=== PATIENT | female | born 1980 | race Caucasian/White ===

== ENCOUNTER 2020-08-19 11:11 | Inpatient (IN) | payer MEDICAID, SELFPAY ==
[2020-08-19 11:12] VITALS: BP 138/76; PULSE 86; RESP 16; O2SAT 97; BMI 45.3
--- NOTE | 2020-08-19 11:38 | ED_ITS ---
HPI - Psych General: Chief Complaint: Psychiatric Symptoms Stated Complaint: PSYCH EVAL Time Seen by Provider: 08/19/20 11:12 Source: patient Limitations: no limitations History of Present Illness: HPI Narrative: 40-year-old female presents with depression and why she is claiming suicidal thoughts and ideation. Patient reports she has a history of depression feels like she needs to be placed inpatient have her meds adjusted. Patient reports that she currently takes depression medication. She states she feels like she did not hurt her self by taking a bunch of pills. She denies any thoughts of hurting but else. She denies any recent illnesses or COVID contacts. Patient no other complaints MD complaint: suicidal ideation Associated symptoms: Reports depression and suicidal ideation Review of Systems Const: Denies: fever(s) or chills Eyes: Denies: change in vision ENMT: Denies: throat pain or hoarseness Card: Denies: chest pain or palpitations Resp: Denies: dyspnea or productive cough GI: Denies: abdominal pain, nausea or vomiting : Denies: flank pain or difficulty voiding Musc: Denies: neck pain or back pain Skin/Breast: Denies: rash or pruritus Neuro: Denies: headache(s) or numbness in extremities Psych: Reports: depression and suicidal ideation Endo: Denies: polyuria or polydipsia All/Imm: Denies: urticaria Physical Exam Const: COMMON NORMALS: no acute distress and patient oriented x3 GENERAL APPEARANCE: cooperative and comfortable NUTRITIONAL APPEARANCE: obese HENMT: COMMON NORMALS: normocephalic and atraumatic HEAD & SCALP: normocephalic and atraumatic FACE & SINUS: normal facial exam Eye: COMMON NORMALS: Equal, round and reactive pupils present and EOMs intact bilaterally PUPIL: Yes Equal, round and reactive pupils present Lymph: LYMPHATIC: no lymphadenopathy noted Chest: COMMONS NORMALS: normal inspection of the chest CHEST: Yes abnormal inspection of the chest Resp: COMMON NORMALS: normal respiratory effort, No retractions and No use of accessory muscles EFFORT & INSPECTION: Yes able to speak in complete sentences Cardio: COMMON NORMALS: regular rate and regular rhythm RATE: regular rate RHYTHM: regular rhythm GI: COMMON NORMALS: Normal to inspection, nondistended, normoactive bowel sounds present, Soft to palpation and non-tender PALPATION: Yes Soft to palpation : COMMON NORMALS: Yes no CVA tenderness and Yes normal external appearance BLADDER/KIDNEY EXAM: Yes no CVA tenderness Back/Pelvis: COMMON NORMALS: no CVA tenderness Extremity: COMMON NORMALS: normal to inspection and full ROM Neuro: COMMON NORMALS: patient oriented x3, CN's II-XII intact bilaterally and no focal motor deficits Psych: COMMON NORMALS: mental status grossly normal and speech normal SPEECH: Yes normal speech THOUGHT CONTENT: Yes Suicidality present INSIGHT: Fair insight present (Psych) Skin: COMMON NORMALS: no rashes or lesions noted GENERAL SKIN EXAM: no rashes or lesions noted MDM - Psych Lab Data: Labs: Lab Results 08/19/20 08/19/20 08/19/20 Range/Units 11:20 11:20 11:20 WBC (4.0-10.0) 10^3/ uL RBC (4.1-5.3) 10^6/u L Hgb (11.5-15.3) g/dL Hct (37.0-47.0) % MCV (81-99) fL MCH (28.0-34.0) pg MCHC (30.0-36.0) g/dL RDW (12.1-15.1) % Plt Count (130-400) 10^3/c mm MPV (7.4-10.4) fL Neut % (Auto) % Lymph % (Auto) % [place] % (Auto) % Eos % (Auto) % Baso % (Auto) % Neut # (Auto) (1.8-7.7) 10^3/u L Lymph # (Auto) (0.8-4.8) 10^3/u L [place] # (Auto) (0.2-0.9) 10^3/u L Eos # (Auto) (0.0-0.8) 10^3/u L Baso # (Auto) (0.0-0.1) 10^3/u L Nucleated RBC % (a uto) % Nucleated RBCs # /100WBC Sodium (136-145) mmol/L Potassium (3.5-5.1) mmol/L Chloride (98-107) mmol/L Carbon Dioxide (22-29) mmol/L Anion Gap (5-19) BUN (6-20) mg/dL Creatinine (0.5-0.9) mg/dL GFR Calculation (90-130) mL/min Glucose (65-115) mg/dL Calculated Osmolal ity (285-295) mOsm/k g Calcium (8.5-10.5) mg/dL Total Bilirubin (0.15-1.2) mg/dL AST (0-32) U/L ALT (0-33) U/L Alkaline Phosphata se (35-105) IU/L Total Protein (6.6-8.7) g/dL Albumin (3.5-5.2) g/dL Globulin (1.3-4.6) g/dL HCG, Qual Negative (Negative) Urine Color Yellow (Yellow) Urine Appearance Hazy A (CLEAR) Urine pH 6.5 (5-7) Ur Specific Gravit y 1.015 (1.005-1.030) Urine Protein Neg (Negative) Urine Glucose (UA) Norm (Normal) Urine Ketones Negative (Negative) Urine Blood 2+ H (Negative) Urine Nitrate Negative (Negative) Urine Bilirubin Neg (Negative) Urine Urobilinogen Norm (Negative) mg/dL Ur Leukocyte Daina ase Trace H (Negative) Urine RBC 0-4 H (0-2) /hpf Urine WBC 5-10 H (0-5) /hpf Ur Squamous Epith Cells 10-15 H (0-5) /hpf Amorphous Sediment Not Reportable Urine Bacteria 1+ H (NONE) /hpf Salicylates (3-10) mg/dL Urine Opiates Scre en Negative (Negative) ng/mL Acetaminophen (10-30) ug/mL Ur Barbiturates Sc reen Negative (Negative) ng/mL Ur Phencyclidine S crn Negative (Negative) ng/mL Ur Amphetamines Sc reen Negative (Negative) ng/mL U Benzodiazepines Scrn Negative (Negative) ng/mL Urine Cocaine Scre en Negative (Negative) ng/mL U Marijuana (THC) Screen Negative (Negative) ng/mL Ethyl Alcohol (0-10) mg/dL 08/19/20 08/19/20 Range/Units 11:45 11:45 WBC 8.2 (4.0-10.0) 10^3/ uL RBC 4.74 (4.1-5.3) 10^6/u L Hgb 15.3 (11.5-15.3) g/dL Hct 47.0 (37.0-47.0) % MCV 99.2 H (81-99) fL MCH 32.3 (28.0-34.0) pg MCHC 32.6 (30.0-36.0) g/dL RDW 12.0 L (12.1-15.1) % Plt Count 295 (130-400) 10^3/c mm MPV 9.1 (7.4-10.4) fL Neut % (Auto) 64.3 % Lymph % (Auto) 24.5 % [place] % (Auto) 8.1 % Eos % (Auto) 2.1 % Baso % (Auto) 0.5 % Neut # (Auto) 5.27 (1.8-7.7) 10^3/u L Lymph # (Auto) 2.0 (0.8-4.8) 10^3/u L [place] # (Auto) 0.7 (0.2-0.9) 10^3/u L Eos # (Auto) 0.2 (0.0-0.8) 10^3/u L Baso # (Auto) 0.0 (0.0-0.1) 10^3/u L Nucleated RBC % (a uto) 0 % Nucleated RBCs # 0.0 /100WBC Sodium 140 (136-145) mmol/L Potassium 3.8 (3.5-5.1) mmol/L Chloride 106 (98-107) mmol/L Carbon Dioxide 26 (22-29) mmol/L Anion Gap 11.8 (5-19) BUN 7 (6-20) mg/dL Creatinine 0.6 (0.5-0.9) mg/dL GFR Calculation 110.2 (90-130) mL/min Glucose 95 (65-115) mg/dL Calculated Osmolal ity 288 (285-295) mOsm/k g Calcium 8.8 (8.5-10.5) mg/dL Total Bilirubin 0.2 (0.15-1.2) mg/dL AST 12 (0-32) U/L ALT 18 (0-33) U/L Alkaline Phosphata se 80 (35-105) IU/L Total Protein 6.7 (6.6-8.7) g/dL Albumin 4.1 (3.5-5.2) g/dL Globulin 2.6 (1.3-4.6) g/dL HCG, Qual (Negative) Urine Color (Yellow) Urine Appearance (CLEAR) Urine pH (5-7) Ur Specific Gravit y (1.005-1.030) Urine Protein (Negative) Urine Glucose (UA) (Normal) Urine Ketones (Negative) Urine Blood (Negative) Urine Nitrate (Negative) Urine Bilirubin (Negative) Urine Urobilinogen (Negative) mg/dL Ur Leukocyte Daina ase (Negative) Urine RBC (0-2) /hpf Urine WBC (0-5) /hpf Ur Squamous Epith Cells (0-5) /hpf Amorphous Sediment Urine Bacteria (NONE) /hpf Salicylates < 0.3 L (3-10) mg/dL Urine Opiates Scre en (Negative) ng/mL Acetaminophen < 5.0 L (10-30) ug/mL Ur Barbiturates Sc reen (Negative) ng/mL Ur Phencyclidine S crn (Negative) ng/mL Ur Amphetamines Sc reen (Negative) ng/mL U Benzodiazepines Scrn (Negative) ng/mL Urine Cocaine Scre en (Negative) ng/mL U Marijuana (THC) Screen (Negative) ng/mL Ethyl Alcohol < 10 (0-10) mg/dL Discharge Plan Discharge Patient Disposition: Admitted As Inpatient Clinical Impression: Suicidal ideation Depression Qualifiers: Depression Type: unspecified Qualified Code(s): F32.9 - Major depressive disorder, single episode, unspecified Condition: Stable Discharge Diet: Regular Coding Level of Care Code ED Wood Tile Installer for Mariel Fwd Exam Comprehensive
[2020-08-19 11:48] LABS: HCG Qualitative Urine. Negative (Negative)
[2020-08-19 11:50] LABS: Blood Urine 2+ (Negative); Glucose Urine UA Norm (Normal); Ketones Urine Negative (Negative); Protein Urine Neg (Negative); Specific Gravity, Urine 1.015 (1.005-1.030); Urine Appearance Hazy (CLEAR); Urine Color Yellow (Yellow); pH Urine 6.5 (5-7)
[2020-08-19 11:51] LABS: Add Urine Microscopic? YES; Bilirubin Urine Neg (Negative); Leukocyte Esterase Urine Trace (Negative); Nitrate Urine Negative (Negative); Urobilinogen Urine Norm (Negative)
[2020-08-19 11:55] LABS: Basophils % 0.5 %; Eosinophils # 0.2 10^3/uL (0.0-0.8); Eosinophils % 2.1 %; Hemoglobin 15.3 g/dL (11.5-15.3); Lymphocytes % 24.5 %; Mean Corpuscular HGB Conc 32.6 g/dL (30.0-36.0); Mean Corpuscular Hemoglobin 32.3 pg (28.0-34.0); Mean Corpuscular Volume 99.2 fL (81-99); Mean Platelet Volume 9.1 fL (7.4-10.4); Monocytes # 0.7 10^3/uL (0.2-0.9); Monocytes % 8.1 %; Neutrophils # 5.27 10^3/uL (1.8-7.7); Neutrophils % 64.3 %; Nucleated Red Blood Cells % 0 %; Platelet Count 295 10^3/cmm (130-400); Red Blood Count 4.74 10^6/uL (4.1-5.3); White Blood Count 8.2 10^3/uL (4.0-10.0)
[2020-08-19 12:11] LABS: Bacteria Urine 1+ /hpf; RBC Urine 0-4 /hpf (0-2)
[2020-08-19 12:16] LABS: Amphetamines Screen Urine Negative (Negative); Barbiturates Screen Urine Negative (Negative); Benzodiazepines Screen Urine Negative (Negative); Cocaine Screen Urine Negative (Negative); Opiate Screen Urine Negative (Negative); PCP Screen Urine Negative (Negative); THC Screen Urine Negative (Negative)
[2020-08-19 12:33] LABS: Alanine Aminotransferase 18 U/L (0-33); Albumin Level 4.1 g/dL (3.5-5.2); Alkaline Phosphatase 80 IU/L (35-105); Anion Gap 11.8 (5-19); Aspartate Amino Transferase 12 U/L (0-32); Blood Urea Nitrogen 7 mg/dL (6-20); Calcium 8.8 mg/dL (8.5-10.5); Carbon Dioxide 26 mmol/L (22-29); Chloride 106 mmol/L (98-107); Globulin 2.6 g/dL (1.3-4.6); Glomerular Filtration Rate 110.2 mL/min (90-130); Glucose 95 mg/dL (65-115); Osmolality Calculated 288 mOsm/kg (285-295); Potassium 3.8 mmol/L (3.5-5.1); Sodium 140 mmol/L (136-145); Total Bilirubin 0.2 mg/dL (0.15-1.2); Total Protein 6.7 g/dL (6.6-8.7)
[2020-08-19 12:43] LABS: Acetaminophen < 5.0 ug/mL (10-30); Alcohol Level < 10 mg/dL (0-10); Salicylate < 0.3 mg/dL (3-10)
[2020-08-19 13:27] VITALS: BP 132/88; PULSE 82; RESP 16; O2SAT 98
--- NOTE | 2020-08-19 13:28 | PC.NURSE ---
pt report called to Don RN in SBAR format at NPU.
[2020-08-19 14:00] VITALS: BP 136/86; PULSE 84; RESP 18; TEMP 36.9; O2SAT 100
[2020-08-19] MEDS: hyDROXYzine 25 mg Capsule 50 MG PO (20:10)
[2020-08-19] MEDS: trazodone 50 mg Tablet PO (20:10)
--- NOTE | 2020-08-19 20:39 | P.HP_ITS ---
Providers/Chief Complaint Admitting Physician: Jordan Ortega Chief Complaint: PSYCH EVAL HPI NPU History of Present Illness Sonia Monzon is a 40 year old female with depression and claiming suicidal ideation. She has a history of depression and feels like she needs to be placed inpatient to have her meds adjusted. Patient reports that she takes fluoxetine 40 mg by mouth daily. She remembers that she had been on Wellbutrin in the past and it worked very well for her. She drifted out of compliance and was never put back on it. She thinks it might be helpful this time around. She feels like she did not hurt her self by taking a bunch of pills. She denies any thoughts of hurting anyone else. She denies any recent illnesses or COVID contacts. Also the patient's on paliperidone palmitate monthly injections. She believes she is due for her next shot of 234 mg IM. Our records ae consistent with that chronology. Review of Systems Narrative: Const: Denies: fever(s) or chills Eyes: Denies: change in vision ENMT: Denies: throat pain or hoarseness Card: Denies: chest pain or palpitations Resp: Denies: dyspnea or productive cough GI: Denies: abdominal pain, nausea or vomiting : Denies: flank pain or difficulty voiding Musc: Denies: neck pain or back pain Skin/Breast: Denies: rash or pruritus Neuro: Denies: headache(s) or numbness in extremities Psych: Reports: depression and suicidal ideation Endo: Denies: polyuria or polydipsia All/Imm: Denies: urticaria Meds NPU Home Medications Medication Instructions Recorded Confirmed Last Taken Type apixaban [Eliquis] 5 mg PO BID 08/19/20 08/19/20 08/19/20 History fenofibrate micronized 200 mg PO DAILY 08/19/20 08/19/20 08/19/20 History fluoxetine 40 mg PO DAILY 08/19/20 08/19/20 08/19/20 History paliperidone palmitate [Invega See Rx Instructions .ROUTE .COMPLEX 08/19/20 08/19/20 Unknown History Sustenna] Allergies Allergy/AdvReac Type Severity Reaction Status Date / Time No Known Allergies Allergy Verified 08/19/20 11:17 [facility] N[facility] Other Psychiatric History: Other Psychiatric History: Long history of depression with psychosis. Currently stable on the latter with respect to paliperidone. She is been on several antidepressants which have faded in efficacy. She recalls excellent response to Wellbutrin. Mental Status Exam MSE Comments: This is a 40-year-old obese female who presents that her stated age. Mood is calm but she harbors suicidal ideation. Affect is fl at. Thought processes are integrated and free of any racing, blocking or looseness of association. There is no evidence of immediate psychotic symptoms such as hallucinations, delusions, ideas of reference, etc. Speech is of normal rate and volume, without dysarthria, aprosody or pressure. Patient denies homicidal ideation, plan or intent. Cognitive functions appear to be intact, with some insight and judgment regarding the need for stabilization of her mood disorder. Vitals/I&O/Wt Last Vital Signs Temp 98.4 F 08/19/20 14:00 Pulse 84 08/19/20 14:00 Resp 18 08/19/20 14:00 BP 136/86 08/19/20 14:00 Pulse Ox 100 08/19/20 14:00 Weight last 48 hrs Weight 240 lb Physical Exam Narrative: EXAM NARRATIVE: Const: no acute distress and patient oriented x3 GENERAL APPEARANCE: cooperative and comfortable NUTRITIONAL APPEARANCE: obese HENMT: HEAD & SCALP: normocephalic and atraumatic FACE & SINUS: normal facial exam Eye: Equal, round and reactive pupils present and EOMs intact bilaterally Lymph: no lymphadenopathy noted Chest: normal inspection of the chest Resp: normal respiratory effort, No retractions and No use of accessory muscles; able to speak in complete sentences Cardio: regular rate and regular rhythm GI: Normal to inspection, nondistended, normoactive bowel sounds present, Soft to palpation and non-tender : no CVA tenderness and normal external appearance Extremity: normal to inspection and full ROM Neuro: patient oriented x3, CN's II-XII intact bilaterally and no focal motor deficits Skin: no rashes or lesions noted Data NPU : 08/19/20 11:45 08/19/20 11:45 A&P Assessment and plan (1) Suicidal ideation: Patient will be monitored and her medications will be adjusted according to indication tolerance and response Status: Acute (2) Depression: See above Status: Acute Qualifiers: Depression Type: unspecified Qualified Code(s): F32.9 - Major depressive disorder, single episode, unspecified Involuntary Hold Information 96 Hour Hold: 96 Hour Involuntary Admission: No Attestations NPU 2 Medical Necessity Statement*: I anticipate 7-10 midnights additional hospitalization. Time Spent in Patient Care: Greater than 35 minutes (>than 50% of time spent in counselling and/or direct pt care on unit) . 60 minutes Coding Level of Care Code Acute Licensed Reactor Operator for Mariel Marcelino Diagnoses Suicidal ideation R45.851 Depression F32.9 Depression Type: unspecified
[2020-08-19 21:10] VITALS: BP 106/66; PULSE 80; RESP 17; TEMP 36.6; O2SAT 99
[2020-08-20 05:56] VITALS: BP 138/82; PULSE 74; RESP 16; TEMP 37; O2SAT 98
[2020-08-20] MEDS: paliperidone palmitate 234 mg Syringe IM (10:52)
[2020-08-20] MEDS: buPROPion XL (24 HR) 150 mg Tablet PO (10:53)
--- NOTE | 2020-08-20 13:35 | NPU.GN ---
Sonia spoke up when asked to but remained quiet during the rest of the session. She appeared to be listening to what was being said, though.
[2020-08-20 14:00] VITALS: BP 117/79; PULSE 89; RESP 18; TEMP 37.4; O2SAT 94
[2020-08-20] MEDS: nicotine 21 mg Patch 1 PATCH TRANSDERMA (14:16)
--- NOTE | 2020-08-20 19:30 | PM.NPN ---
Subjective NPU Subjective: Interval history: Ms. Monzon says, I feel fine. She attributes this to her paliperidone injection as well as initiation of bupropion XL. She is not having any suicidal ideation and she no longer feels that her medicines are not right. She needs to get re-attached to [facility] for continuing care. I will discuss with cyber intel planner tomorrow. Medications: Reviewed: Yes Medication Review Details: Current Medications Acetaminophen (Tylenol) 650 mg PO Q4H PRN PRN Reason: MILD PAIN Benztropine Mesylate (Cogentin) 1 mg PO BID PRN PRN Reason: Mild Extrapyramidal symptoms Bupropion HCl (Wellbutrin Xl (24 Hr)) 150 mg PO DAILY SUNIL Stop: 08/22/20 12:00 Last Admin: 08/20/20 10:53 Dose: 150 mg Documented by: Bupropion HCl (Wellbutrin Xl (24 Hr)) 300 mg PO DAILY SUNIL Camphor/Menthol/Phenol (Blistex) 1 applic TOPICAL Q1H PRN PRN Reason: DRYNESS Diphenhydramine HCl (Benadryl) 50 mg IM ONCE PRN PRN Reason: Severe Extrapyramidal Symptoms Diphenhydramine HCl (Benadryl) 50 mg IM Q4H PRN PRN Reason: Severe Aggression Haloperidol (Haldol) 5 mg PO Q4H PRN PRN Reason: AGITATION Haloperidol Lactate (Haldol Inj) 5 mg IM Q4H PRN PRN Reason: Severe Aggression Hydroxyzine Pamoate (Vistaril) 50 mg PO Q6H PRN PRN Reason: ANXIETY Last Admin: 08/19/20 20:10 Dose: 50 mg Documented by: Loperamide HCl (Imodium Capsule) 2 mg PO Q6H PRN PRN Reason: DIARRHEA Lorazepam (Ativan) 2 mg IM Q4H PRN PRN Reason: Severe Aggression Nicotine (Nicoderm 21 Mg Patch) 1 patch TRANSDERMA DAILY PRN PRN Reason: NICOTINE WITHDRAWAL Last Admin: 08/20/20 14:16 Dose: 1 patch Documented by: Nicotine Polacrilex (Nicorette) 2 mg BUCCAL Q2H PRN PRN Reason: NICOTINE WITHDRAWAL Olanzapine (Zyprexa Zydis) 5 mg PO Q4H PRN PRN Reason: Agitation/Psychosis Ondansetron HCl (Zofran) 4 mg PO Q6H PRN PRN Reason: NAUSEA AND VOMITING Trazodone HCl (Desyrel) 50 mg PO BEDTIME PRN PRN Reason: SLEEP Last Admin: 08/19/20 20:10 Dose: 50 mg Documented by: Mental Status Exam MSE Comments: This is a 40-year-old obese female who presents that her stated age. Mood is euthymic and she no longer harbors suicidal ideation. Affect is cheerful and appropriate. Thought processes are integrated and free of any racing, blocking or looseness of association. There is no evidence of immediate psychotic symptoms such as hallucinations, delusions, ideas of reference, etc. Speech is of normal rate and volume, without dysarthria, aprosody or pressure. Patient denies homicidal ideation, plan or intent. Cognitive functions appear to be intact, with some insight and judgment regarding the need for stabilization of her mood disorder. Vitals/I&O/Wt Last Vital Signs Temp 99.4 F 08/20/20 14:00 Pulse 89 08/20/20 14:00 Resp 18 08/20/20 14:00 BP 117/79 08/20/20 14:00 Pulse Ox 94 08/20/20 14:00 Weight last 48 hrs Weight 240 lb Data NPU : 08/19/20 11:45 08/19/20 11:45 A&P Assessment and plan (1) Depression: Pharmacotherapy is apparently on target. Aftercare arrangements need to be established and the patient can thereafter be discharged. Status: Acute Qualifiers: Depression Type: unspecified Qualified Code(s): F32.9 - Major depressive disorder, single episode, unspecified Involuntary Hold Information 96 Hour Hold: 96 Hour Involuntary Admission: No Attestations NPU Medical Necessity Statement*: I anticipate 2 midnights at the most. Time Spent in Patient Care: Greater than 35 minutes (>than 50% of time spent in counselling and/or direct pt care on unit). 40 minutes Coding Level of Care Code Acute Carpet Floor Layer Apprentice for g Fwd Diagnoses Depression F32.9 Depression Type: unspecified
[2020-08-20 19:42] VITALS: BP 114/81; PULSE 84; RESP 16; TEMP 37.1; O2SAT 96
[2020-08-20] MEDS: hyDROXYzine 25 mg Capsule 50 MG PO (19:49)
[2020-08-20] MEDS: trazodone 50 mg Tablet PO (19:49)
[2020-08-21 05:30] VITALS: BP 126/78; PULSE 75; RESP 16; TEMP 36.7; O2SAT 96
[2020-08-21] MEDS: buPROPion XL (24 HR) 150 mg Tablet PO (08:49)
--- NOTE | 2020-08-21 10:38 | P.DS_ITS ---
Diagnoses at Discharge Discharge Diagnosis (1) Depression: Status: Resolved Problem details: Patient requires adjustment of pharmacotherapy and continuation of Invega Sustenna. Qualifiers: Depression Type: unspecified Qualified Code(s): F32.9 - Major depressive disorder, single episode, unspecified Reason for Visit Reason for Visit: PSYCH EVAL Hospital Course Hospital Course Patient entered feeling dysphoric and depressed, wanting assessment and treatment for her ongoing depression. We got her Invega Sustenna injected and, pursuant to her history of good response to bupropion in the past, she was titrated on bupropion XL, to be given at 300 mg daily starting tomorrow. She will follow-up at [facility] Discharge Summary The patient will follow-up at behavioral health care in [place]. She will receive monthly 300-milligram injections of paliperidone palmitate as well as her bupropion. Involuntary Hold Information 96 Hour Hold: 96 Hour Involuntary Admission: No Mental Status Exam MSE Comments: This is a 40-year-old obese female who presents at her stated age. Mood is euthymic and she no longer harbors suicidal ideation. Affect is cheerful and appropriate. Thought processes are integrated and free of any racing, blocking or looseness of association. There is no evidence of immediate psychotic symptoms such as but not limited to hallucinations, delusions, ideas of reference, etc. Speech is of normal rate and volume, without dysarthria, aprosody or pressure. Patient denies homicidal ideation, plan or intent. Cognitive functions appear to be intact, with some insight and judgment regarding the need for stabilization of her mood disorder. Discharge Data Vitals: Last Vital Signs Temp 98.1 F 08/21/20 05:30 Pulse 75 08/21/20 05:30 Resp 16 08/21/20 05:30 BP 126/78 08/21/20 05:30 Pulse Ox 96 08/21/20 05:30 Discharge Plan Discharge Patient Disposition: Home Condition: Stable Prescriptions: New bupropion HCl 300 mg Tablet Extended Release 24 Hr 300 mg PO DAILY 30 Days Qty: 30 RF: 1 Continued fenofibrate micronized 200 mg capsule 200 mg PO DAILY 30 Days Qty: 30 RF: 0 Eliquis 5 mg tablet 5 mg PO BID 30 Days Qty: 60 RF: 1 Changed Invega Sustenna 156 mg/mL syringe See Rx Instructions .ROUTE .COMPLEX 30 Days Qty: 1 RF: 3 Discontinued fluoxetine 40 mg capsule 40 mg PO DAILY RF: 0 Discharge Orders: Discharge Order (Routine); Ordered 08/21/20 Ordered By: Jordan Ortega Referrals: [facility] in [place] [Other] - 1-3 days (call and ask for outpatient mental health services.. You will need an intake to start services. ) [facility] [Other] - 09/04/20 11:15 am (this appointment is for follow-up from your hospitalization. You will still need to make contact with [facility] to initiate services there for outpatient mental health services. In the meantime, you will go to [facility] until your referral is complete and you have an assigned doctor. If you cannot get an appointment for your injection at [facility] in time when the injection of invega is due, you will want to make sure you have an appointment September 20 with your provider at [facility] and get it there. You will need to make sure the medicine is filled before you go an appointment on September 20. The appointment on the with your current provider, Maty Flannery is simply to make sure you have follow-up from this hospitalization. ) Donte Lee MD [Family Provider] - Discharge Diet: Regular Discharge Activity: Resume usual activity Patient Instructions: Bupropion (By mouth), Paliperidone (Injection), Depression (DC) Discharge Attestations NPU Time Spent in Discharge Care*: greater than 30 min Specific Discharge Activities: Specific discharge activities: educating patient, discussing with pcp/other providers, discussing with case consultant/social workers/dc planners, documenting/other paperwork and evaluating patient/reviewing data Other discharge activites (optional): Risk assessment Status at Discharge: Cognitive status at discharge: cognitively intact , Behavioral status at discharge: cooperative , Overall status at discharge: patient is back to baseline Coding Level of Care Code Acute Department Mgr for g Fwd Diagnoses Depression F32.9 Depression Type: unspecified
[2020-08-21 10:40] VITALS: BP 126/78; PULSE 75; RESP 16; TEMP 36.7; O2SAT 96
== END 2020-08-21 11:51 | disposition home or self-care (01) | DRG 881 ==
LOC: ER 12:54 → NP 13:17
PROVIDERS: Emergency Provider Student in an Organized Health Care Education/Training Program; Family Provider Family Medicine
DX: F32.9 Major depressive disorder, single episode, unspecified (principal); R45.851 Suicidal ideations
CPT/HCPCS: 12345; 36415; 80053; 80306; 80307; 81001; 81025; 85025; 96372; 99284

== ENCOUNTER 2020-08-28 23:27 | Inpatient (IN) | payer MEDICAID, SELFPAY ==
[2020-08-28 23:33] VITALS: BP 119/89; PULSE 82; RESP 17; O2SAT 98; BMI 45.3
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
--- NOTE | 2020-08-28 23:40 | ECG_ITS ---
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 Measurements Intervals Garrett Rate: 96 P: 49 DC: 132 QRS: 20 QRSD: 82 T: 33 QT: 353 QTc: 447 Interpretive Statements SINUS RHYTHM Compared to ECG 06/27/2018 13:47:18 No significant changes Electronically Signed On 08-30-2020 20:36:14 CDT by Jim Neves M.D. [email or web address]
[2020-08-28 23:49] LABS: Basophils # 0.1 10^3/uL (0.0-0.1); Basophils % 0.5 %; Eosinophils # 0.4 10^3/uL (0.0-0.8); Eosinophils % 3.1 %; Hematocrit 43.4 % (37.0-47.0); Hemoglobin 14.2 g/dL (11.5-15.3); Lymphocytes # 2.8 10^3/uL (0.8-4.8); Lymphocytes % 22.3 %; Mean Corpuscular HGB Conc 32.7 g/dL (30.0-36.0); Mean Corpuscular Hemoglobin 32.1 pg (28.0-34.0); Mean Corpuscular Volume 98.2 fL (81-99); Monocytes % 8.2 %; Neutrophils # 8.13 10^3/uL (1.8-7.7); Neutrophils % 65.6 %; Nucleated Red Blood Cells % 0 %; Platelet Count 338 10^3/cmm (130-400); Red Blood Count 4.42 10^6/uL (4.1-5.3); Red Cell Distribution Width 12.4 % (12.1-15.1); White Blood Count 12.4 10^3/uL (4.0-10.0)
[2020-08-29 00:04] LABS: Amphetamines Screen Urine Negative (Negative); Barbiturates Screen Urine Negative (Negative); Benzodiazepines Screen Urine Negative (Negative); Cocaine Screen Urine Negative (Negative); Opiate Screen Urine Negative (Negative); PCP Screen Urine Negative (Negative); THC Screen Urine Negative (Negative)
[2020-08-29 00:12] LABS: Bilirubin Urine Neg (Negative); Blood Urine 2+ (Negative); Glucose Urine UA Norm (Normal); Ketones Urine 1+ (Negative); Leukocyte Esterase Urine Negative (Negative); Nitrate Urine Negative (Negative); Protein Urine Neg (Negative); Urine Appearance Hazy (CLEAR); Urine Color Yellow (Yellow); Urobilinogen Urine Norm (Negative); pH Urine 5 (5-7)
[2020-08-29 00:14] LABS: Bacteria Urine 1+ /hpf; RBC Urine 0-4 /hpf (0-2); WBC Urine 0-4 /hpf (0-5)
[2020-08-29 00:15] LABS: Add Urine Culture? No; Calcium Oxalate Crystals Urine 25-40 /hpf; Hyaline Casts Urine 0-4 /lpf; Mucus Urine TRACE /hpf; Squamous Epithelial Cell Urine 15-25 /hpf (0-5)
[2020-08-29 00:16] LABS: Alanine Aminotransferase 14 U/L (0-33); Alkaline Phosphatase 79 IU/L (35-105); Anion Gap 13.8 (5-19); Aspartate Amino Transferase 17 U/L (0-32); Blood Urea Nitrogen 14 mg/dL (6-20); Calcium 9.4 mg/dL (8.5-10.5); Carbon Dioxide 24 mmol/L (22-29); Chloride 104 mmol/L (98-107); Globulin 2.5 g/dL (1.3-4.6); Glomerular Filtration Rate 92.2 mL/min (90-130); Glucose 111 mg/dL (65-115); HCG, Serum Qual Negative (Negative); Osmolality Calculated 287 mOsm/kg (285-295); Potassium 3.8 mmol/L (3.5-5.1); Sodium 138 mmol/L (136-145); Total Bilirubin 0.2 mg/dL (0.15-1.2); Total Protein 6.5 g/dL (6.6-8.7)
[2020-08-29 00:19] LABS: Acetaminophen < 5.0 ug/mL (10-30); Alcohol Level < 10 mg/dL (0-10); Salicylate < 0.3 mg/dL (3-10)
[2020-08-29 01:34] VITALS: BP 120/76; PULSE 77; RESP 16; TEMP 36.7; O2SAT 98
[2020-08-29 01:45] VITALS: BP 150/69; PULSE 93; RESP 18; TEMP 36.6; O2SAT 96
[2020-08-29 02:10] VITALS: BP 150/69; PULSE 93; RESP 18; TEMP 36.6; O2SAT 96
--- NOTE | 2020-08-29 02:28 | PC.NURSE ---
Skin assessment revealed scattered bug bites, no wounds or other abnormalities.
[2020-08-29 06:00] VITALS: BP 109/85; PULSE 87; RESP 18; TEMP 36.4; O2SAT 96
[2020-08-29] MEDS: apixaban 5 mg Tablet PO ×2 (07:40→21:26)
--- NOTE | 2020-08-29 07:43 | PC.NURSE ---
INFLUENZA VACCINE ADMINISTERED IN LEFT DELTOID 0.5 ML LOT [id number] EXP 05/15/21
--- NOTE | 2020-08-29 13:21 | NPU.GN ---
Sonia did not speak up during group and it was difficult to tell if she was fully paying attention during the session.
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
[2020-08-29 14:00] VITALS: BP 92/57; PULSE 99; RESP 18; TEMP 36.6; O2SAT 97
[2020-08-29] MEDS: acetaminophen 325 mg Tablet 650 MG PO (21:25)
[2020-08-29] MEDS: trazodone 50 mg Tablet PO (21:25)
[2020-08-29] MEDS: hyDROXYzine 25 mg Capsule 50 MG PO (21:25)
[2020-08-29] MEDS: nicotine 2 mg Gum BUCCAL (21:29)
[2020-08-29 22:00] VITALS: BP 117/74; PULSE 78; RESP 18; TEMP 36.4; O2SAT 94
[2020-08-30 05:56] VITALS: BP 127/83; PULSE 76; RESP 16; TEMP 36.6; O2SAT 97
[2020-08-30] MEDS: apixaban 5 mg Tablet PO (08:10)
[2020-08-30] MEDS: nicotine 21 mg Patch 1 PATCH TRANSDERMA (09:52)
[2020-08-30 14:33] VITALS: BP 127/83; PULSE 76; RESP 16; TEMP 36.6; O2SAT 97
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
== END 2020-08-30 16:36 | disposition home or self-care (01) | DRG 882 ==
LOC: ER 23:53 → NP 08-29 01:16
PROVIDERS: Physician Assistant; Admitting Provider Psychiatry & Neurology Psychiatry; Family Provider Family Medicine; Visit Provider Psychiatry & Neurology Psychiatry
DX: F43.25 Adjustment disorder with mixed disturbance of emotions and conduct (principal); R45.851 Suicidal ideations; Z68.42 Body mass index [BMI] 45.0-49.9, adult; F17.210 Nicotine dependence, cigarettes, uncomplicated; E66.01 Morbid (severe) obesity due to excess calories
CPT/HCPCS: 12345; 80053; 80306; 80307; 81001; 84703; 85025; 90471; 90686; 93005; 99284

== ENCOUNTER → 2021-03-06 15:38 | Outpatient (BNVA) | payer MEDICAID, SELFPAY | PROVIDERS: Family Provider Family Medicine; Visit Provider Psychiatry & Neurology Psychiatry | DX: F25.9 Schizoaffective disorder, unspecified (principal); Z03.89 Encounter for observation for other suspected diseases and conditions ruled out; Z79.899 Other long term (current) drug therapy | CPT/HCPCS: 36415; 80053; 80061; 83036; 84443; 85025 ==

== ENCOUNTER 2021-05-14 16:55 | Inpatient (IN) | payer MEDICAID, SELFPAY ==
[2021-05-14 17:01] VITALS: BMI 47.2
[2021-05-14 17:11] VITALS: BP 124/70; PULSE 93; RESP 18; O2SAT 97
[2021-05-14 18:26] LABS: HCG, Serum Qual Negative (Negative)
[2021-05-14 18:29] LABS: Alanine Aminotransferase 17 U/L (0-33); Albumin Level 3.8 g/dL (3.5-5.2); Alkaline Phosphatase 77 IU/L (35-105); Blood Urea Nitrogen 8 mg/dL (6-20); Calcium 8.4 mg/dL (8.5-10.5); Carbon Dioxide 17 mmol/L (22-29); Chloride 108 mmol/L (98-107); Globulin 2.4 g/dL (1.3-4.6); Glomerular Filtration Rate 109.6 mL/min (90-130); Glucose 98 mg/dL (65-115); Osmolality Calculated 282 mOsm/kg (285-295); Sodium 137 mmol/L (136-145); Total Bilirubin 0.2 mg/dL (0.15-1.2); Total Protein 6.2 g/dL (6.6-8.7)
[2021-05-14 18:33] LABS: Acetaminophen < 5.0 ug/mL (10-30); Alcohol Level < 10 mg/dL (0-10); Anion Gap 15.9 (5-19); Potassium 3.9 mmol/L (3.5-5.1); Salicylate < 0.3 mg/dL (3-10)
[2021-05-14 18:34] LABS: Aspartate Amino Transferase 15 U/L (0-32)
[2021-05-14 19:20] LABS: Amphetamines Screen Urine Negative (Negative); Barbiturates Screen Urine Negative (Negative); Benzodiazepines Screen Urine Negative (Negative); Cocaine Screen Urine Negative (Negative); Opiate Screen Urine Negative (Negative); PCP Screen Urine Negative (Negative); THC Screen Urine Negative (Negative)
[2021-05-14 19:29] LABS: Basophils # 0.1 10^3/uL (0.0-0.1); Basophils % 0.7 %; Eosinophils # 0.4 10^3/uL (0.0-0.8); Eosinophils % 3.7 %; Hemoglobin 13.6 g/dL (11.5-15.3); Mean Corpuscular HGB Conc 33.2 g/dL (30.0-36.0); Mean Corpuscular Hemoglobin 32.2 pg (28.0-34.0); Mean Corpuscular Volume 96.9 fL (81-99); Mean Platelet Volume 9.6 fL (7.4-10.4); Monocytes # 1.2 10^3/uL (0.2-0.9); Monocytes % 11.6 %; Neutrophils # 5.39 10^3/uL (1.8-7.7); Neutrophils % 53.6 %; Nucleated Red Blood Cells % 0 %; Platelet Count 281 10^3/cmm (130-400); Red Blood Count 4.23 10^6/uL (4.1-5.3); Red Cell Distribution Width 12.5 % (12.1-15.1); White Blood Count 10.1 10^3/uL (4.0-10.0)
[2021-05-14 19:46] LABS: Add Urine Microscopic? YES; Bilirubin Urine 1+ (Negative); Blood Urine 2+ (Negative); Glucose Urine UA Norm (Normal); Ketones Urine Negative (Negative); Leukocyte Esterase Urine Trace (Negative); Nitrate Urine Negative (Negative); Protein Urine Neg (Negative); Specific Gravity, Urine 1.025 (1.005-1.030); Urine Appearance Clear (CLEAR); Urine Color Amber (Yellow); Urobilinogen Urine 1 mg/dL (Negative); pH Urine 5 (5-7)
[2021-05-14 19:51] LABS: Add Urine Culture? No; Bacteria Urine 3+ /hpf; RBC Urine 0-4 /hpf (0-2); Squamous Epithelial Cell Urine 0-4 /hpf (0-5); WBC Urine 0-4 /hpf (0-5)
[2021-05-14 20:16] VITALS: BP 131/85; PULSE 82; RESP 16; TEMP 37.2; O2SAT 99
[2021-05-14 20:48] VITALS: BP 126/82; PULSE 91; RESP 18; O2SAT 98
--- NOTE | 2021-05-14 21:58 | PC.NURSE ---
pt agreed to shower just prior to skin assessment completed. approximately 75 -100 seed ticks were removed after pt showered, using aseptic technique with alcohol swabs and tweezers. pt noted with multiple scab covered bite wounds over entire body where pt stated she has scratched.
[2021-05-14 22:00] VITALS: RESP 15
--- NOTE | 2021-05-14 22:41 | W.ED.PSYCH ---
HPI - Psych General: Chief Complaint: Psychiatric Symptoms Stated Complaint: SI Time Seen by Provider: 05/14/21 17:01 Source: patient Mode of arrival: EMS Limitations: no limitations History of Present Illness: HPI Narrative: To theThis 41-year-old female patient to department with complaints of suicidal ideation. She states she has been feeling this way for a few days and it is getting worse. She has a plan to overdose on her medications or cut herself on her wrist. She is therefore here to be evaluated. She would like to be admitted to this facility. She has had a previous psychiatric admission about 6 months ago. complaint: suicidal ideation and feels depressed Onset (ago): day(s) (3) Duration: constant History of same: Yes Relieving factors: none Exacerbating factors: none Associated psychiatric symptoms: depression, suicidal ideation, auditory hallucinations and visual hallucinations Associated symptoms: Reports auditory hallucinations, visual hallucinations and depression; Deny delusions, homicidal ideation, suicidal ideation or racing thoughts Treatments prior to arrival: none If self harm: admits thoughts of self harm and has plan Review of Systems General: Reports: 10 or more systems reviewed and unremarkable except in HPI and below Psych: Reports: depression, visual hallucinations and auditory hallucinations; Denies: suicidal ideation or homicidal ideation [facility] PFSH: Medical History (Reviewed 05/14/21 @ 22:43 by Anil Kirby MD, [facility]) MDD (major depressive disorder), recurrent, severe, with psychosis Schizoaffective disorder Social History (Reviewed 05/14/21 @ 22:43 by Anil Kirby MD, [facility]) Current gender identity: Female Physical Exam Const: COMMON NORMALS: no acute distress, average body habitus, patient oriented x3, no limitations, healthy appearing, alert and well nourished HENMT: COMMON NORMALS: normocephalic, atraumatic and moist oral mucous membranes HEAD & SCALP: normocephalic and atraumatic Neck/C-Spine: COMMON NORMALS: no meningeal signs and no JVD Resp: COMMON NORMALS: normal respiratory effort, No retractions, No use of accessory muscles, clear to auscultation bilaterally and percussion normal AUSCULTATION: clear to auscultation bilaterally PERCUSSION: percussion normal Cardio: COMMON NORMALS: no JVD, regular rate, regular rhythm, S1 normal heart sound present, S2 normal heart sound present, No gallops present (Cardio), No clicks present (Cardio), No murmurs present (Cardio), No rub (Cardio) and Peripheral pulses 2+ throughout RATE: regular rate RHYTHM: regular rhythm HEART SOUNDS: S1 normal heart sound present and S2 normal heart sound present PERIPHERAL PULSES: Peripheral pulses 2+ throughout GI: COMMON NORMALS: Normal to inspection, nondistended, normoactive bowel sounds present, Soft to palpation, non-tender, No hepatosplenomegaly present, no masses and no bruits PALPATION: Yes Soft to palpation and Yes No hepatosplenomegaly present Extremity: COMMON NORMALS: normal to inspection, full ROM, capillary refill normal, no calf tenderness and no pedal edema Neuro: COMMON NORMALS: patient oriented x3 SENSORIUM/ORIENTATION: Yes alert MENINGEAL SIGNS: Yes no meningeal signs Psych: THOUGHT CONTENT: No delusions Skin: COMMON NORMALS: no rashes or lesions noted, no wounds, turgor normal, no jaundice, no petechiae and no mottling GENERAL SKIN EXAM: no rashes or lesions noted and turgor normal Course Consultations: Consultation #1: Discussed the patient with Dr. Monzon, psychiatrist and he kindly accepted patient to his service. Time: 20:09 Vital Signs: Vital signs: Vital Signs Temperature 98.9 F 05/14/21 20:16 Pulse Rate 91 05/14/21 20:48 Respiratory Rate 18 05/14/21 20:48 Blood Pressure 126/82 05/14/21 20:48 Pulse Oximetry 98 05/14/21 20:48 MDM - Psych MDM Narrative: Medical decision making narrative: 41-year-old female patient who presents to the emergency department with complaints of suicidal ideation. She is medically cleared and is admitted to the neuropsychiatric unit for further evaluation and management. As part of her work-up urinalysis showed that she has a possible urinary tract infection and she will be started on oral antibiotics for these. Medical Records: Attestation: I reviewed the patient's medical records. Lab Data: Attestation: I reviewed the patient's lab results. Labs: Lab Results 05/14/21 05/14/21 05/14/21 Range/Units 17:20 17:25 17:25 WBC Cancelled Corrected WBC Cancelled RBC Cancelled Hgb Cancelled Hct Cancelled MCV Cancelled MCH Cancelled MCHC Cancelled RDW Cancelled Plt Count Cancelled MPV Cancelled Gran % Cancelled Neut % (Auto) Cancelled Lymph % (Auto) Cancelled [place] % (Auto) Cancelled Eos % (Auto) Cancelled Baso % (Auto) Cancelled Neut # (Auto) Cancelled Lymph # (Auto) Cancelled [place] # (Auto) Cancelled Eos # (Auto) Cancelled Baso # (Auto) Cancelled Absolute Gran (aut o) Cancelled Nucleated RBC % (a uto) Cancelled Nucleated RBCs # Cancelled Sodium 137 (136-145) mmol/L Potassium 3.9 (3.5-5.1) mmol/L Chloride 108 H (98-107) mmol/L Carbon Dioxide 17 L (22-29) mmol/L Anion Gap 15.9 (5-19) BUN 8 (6-20) mg/dL Creatinine 0.6 (0.5-0.9) mg/dL GFR Calculation 109.6 (90-130) mL/min Glucose 98 (65-115) mg/dL Calculated Osmolal ity 282 L (285-295) mOsm/k g Calcium 8.4 L (8.5-10.5) mg/dL Total Bilirubin 0.2 (0.15-1.2) mg/dL AST 15 (0-32) U/L ALT 17 (0-33) U/L Alkaline Phosphata se 77 (35-105) IU/L Total Protein 6.2 L (6.6-8.7) g/dL Albumin 3.8 (3.5-5.2) g/dL Globulin 2.4 (1.3-4.6) g/dL HCG, Qual (Negative) Urine Color Crystal (Yellow) Urine Appearance Clear (CLEAR) Urine pH 5 (5-7) Ur Specific Gravit y 1.025 (1.005-1.030) Urine Protein Neg (Negative) Urine Glucose (UA) Norm (Normal) Urine Ketones Negative (Negative) Urine Blood 2+ H (Negative) Urine Nitrate Negative (Negative) Urine Bilirubin 1+ H (Negative) Urine Urobilinogen 1 H (Negative) mg/dL Ur Leukocyte Daina ase Trace H (Negative) Urine RBC 0-4 H (0-2) /hpf Urine WBC 0-4 H (0-5) /hpf Ur Squamous Epith Cells 0-4 H (0-5) /hpf Amorphous Sediment Not Reportable Urine Bacteria 3+ H (NONE) /hpf Salicylates < 0.3 L (3-10) mg/dL Urine Opiates Scre en (Negative) ng/mL Acetaminophen < 5.0 L (10-30) ug/mL Ur Barbiturates Sc reen (Negative) ng/mL Ur Phencyclidine S crn (Negative) ng/mL Ur Amphetamines Sc reen (Negative) ng/mL U Benzodiazepines Scrn (Negative) ng/mL Urine Cocaine Scre en (Negative) ng/mL U Marijuana (THC) Screen (Negative) ng/mL Ethyl Alcohol < 10 (0-10) mg/dL 05/14/21 05/14/21 05/14/21 Range/Units 17:25 18:00 19:26 WBC 10.1 H Corrected WBC RBC 4.23 Hgb 13.6 Hct 41.0 MCV 96.9 MCH 32.2 MCHC 33.2 RDW 12.5 Plt Count 281 MPV 9.6 Gran % Neut % (Auto) 53.6 Lymph % (Auto) 30.0 [place] % (Auto) 11.6 Eos % (Auto) 3.7 Baso % (Auto) 0.7 Neut # (Auto) 5.39 Lymph # (Auto) 3.0 [place] # (Auto) 1.2 H Eos # (Auto) 0.4 Baso # (Auto) 0.1 Absolute Gran (aut o) Nucleated RBC % (a uto) 0 Nucleated RBCs # 0.0 Sodium (136-145) mmol/L Potassium (3.5-5.1) mmol/L Chloride (98-107) mmol/L Carbon Dioxide (22-29) mmol/L Anion Gap (5-19) BUN (6-20) mg/dL Creatinine (0.5-0.9) mg/dL GFR Calculation (90-130) mL/min Glucose (65-115) mg/dL Calculated Osmolal ity (285-295) mOsm/k g Calcium (8.5-10.5) mg/dL Total Bilirubin (0.15-1.2) mg/dL AST (0-32) U/L ALT (0-33) U/L Alkaline Phosphata se (35-105) IU/L Total Protein (6.6-8.7) g/dL Albumin (3.5-5.2) g/dL Globulin (1.3-4.6) g/dL HCG, Qual Negative (Negative) Urine Color (Yellow) Urine Appearance (CLEAR) Urine pH (5-7) Ur Specific Gravit y (1.005-1.030) Urine Protein (Negative) Urine Glucose (UA) (Normal) Urine Ketones (Negative) Urine Blood (Negative) Urine Nitrate (Negative) Urine Bilirubin (Negative) Urine Urobilinogen (Negative) mg/dL Ur Leukocyte Daina ase (Negative) Urine RBC (0-2) /hpf Urine WBC (0-5) /hpf Ur Squamous Epith Cells (0-5) /hpf Amorphous Sediment Urine Bacteria (NONE) /hpf Salicylates (3-10) mg/dL Urine Opiates Scre en Negative (Negative) ng/mL Acetaminophen (10-30) ug/mL Ur Barbiturates Sc reen Negative (Negative) ng/mL Ur Phencyclidine S crn Negative (Negative) ng/mL Ur Amphetamines Sc reen Negative (Negative) ng/mL U Benzodiazepines Scrn Negative (Negative) ng/mL Urine Cocaine Scre en Negative (Negative) ng/mL U Marijuana (THC) Screen Negative (Negative) ng/mL Ethyl Alcohol (0-10) mg/dL Discharge Plan Discharge Patient Disposition: Admitted As Inpatient Admit Provider: Naldo Monzon Clinical Impression: Suicidal ideation Condition: Stable Coding Level of Care Code ED Medical Practice Manager for Mariel Marcelino
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
[2021-05-15 06:00] VITALS: BP 102/65; PULSE 82; RESP 17; TEMP 37; O2SAT 98
[2021-05-15] MEDS: nicotine 21 mg Patch 1 PATCH TRANSDERMA (07:35)
[2021-05-15] MEDS: atorvastatin 40 mg Tablet 20 MG PO (09:24)
[2021-05-15] MEDS: fluoxetine 20 mg Capsule 40 MG PO (09:24)
[2021-05-15] MEDS: apixaban 5 mg Tablet PO ×2 (09:24→18:01)
[2021-05-15] MEDS: spironolactone 25 mg Tablet 100 MG PO ×2 (09:50→18:00)
[2021-05-15] MEDS: sulfamethoxazole-trimeth DS 160-800 mg Tablet 1 TAB PO ×2 (09:51→18:01)
[2021-05-15] MEDS: topiramate 100 mg Tablet 200 MG PO ×2 (09:51→18:01)
[2021-05-15 14:00] VITALS: BP 136/74; PULSE 88; RESP 16; TEMP 36.2; O2SAT 97
[2021-05-15 20:55] VITALS: BP 103/67; PULSE 86; RESP 16; TEMP 37.2; O2SAT 96
[2021-05-16 06:00] VITALS: BP 101/66; PULSE 72; RESP 14; TEMP 36.8; O2SAT 96
[2021-05-16] MEDS: paliperidone palmitate 234 mg Syringe IM (09:36)
[2021-05-16] MEDS: fluoxetine 20 mg Capsule 40 MG PO (09:37)
[2021-05-16] MEDS: atorvastatin 40 mg Tablet 20 MG PO (09:37)
[2021-05-16] MEDS: apixaban 5 mg Tablet PO ×2 (09:37→17:49)
[2021-05-16] MEDS: sulfamethoxazole-trimeth DS 160-800 mg Tablet 1 TAB PO ×2 (09:37→17:49)
[2021-05-16] MEDS: topiramate 100 mg Tablet 200 MG PO ×2 (09:37→17:50)
[2021-05-16] MEDS: spironolactone 25 mg Tablet 100 MG PO ×2 (09:37→17:50)
[2021-05-16] MEDS: nicotine 21 mg Patch 1 PATCH TRANSDERMA (11:42)
--- NOTE | 2021-05-16 12:57 | PM.NPN ---
Subjective NPU Subjective: Interval history: Patient is denying any psychotic symptoms today, denies any auditory or visual destinations She denies any interval suicidal ideation and denies any depressive symptoms She reports getting her monthly Invega injection today with no reports of any side effects Per staff report, no interval behavioral disturbances, no interval suicidal statements or bizarre behavior Mental Status Exam MSE Comments: Obese, unkempt, polite, interactive, cooperative with interview, good eye contact Psychomotor activity is neither increased nor decreased, no agitation I am feeling much better, congruent affect, full range, not labile Alert and oriented to person, place, time Memory and concentration appear to be fair per interview Thought process, linear, no flight of ideas, no looseness of associations Thought content, no delusions, does not appear to be attending to any internal stimuli, no suicidal or homicidal ideation Insight and judgment are fair Vitals/I&O/Wt Last Vital Signs Temp 98.3 F 05/16/21 06:00 Pulse 72 05/16/21 06:00 Resp 14 05/16/21 06:00 BP 101/66 05/16/21 06:00 Pulse Ox 96 05/16/21 06:00 Weight last 48 hrs Weight 113.398 kg Data NPU : 05/14/21 19:26 05/14/21 17:25 A&P Assessment and plan (1) Suicidal ideation: Status: Acute (2) Schizoaffective disorder: Status: Acute (3) Borderline intellectual functioning: Status: Acute Additional A&P Information Patient with borderline intellectual functioning presenting with suicidal ideation in the context of multiple stressors currently denying any mood symptoms, denies any suicidal ideation and denies any psychotic symptoms Received monthly Invega injection this morning CONTINUE current medication, continue to monitor Coordinate with social insurance analyst for post discharge mental health care follow-up as scheduled Involuntary Hold Information 96 Hour Hold: 96 Hour Involuntary Admission: No Attestations NPU Medical Necessity Statement*: Continues to require psychiatric hospitalization for medication stabilization, coordination for safe discharge Coding Level of Care Code Acute Coil Strapper for Mariel Marcelino Diagnoses Suicidal ideation R45.851 Schizoaffective disorder F25.9 Borderline intellectual functioning R41.83
[2021-05-16 14:00] VITALS: BP 135/78; PULSE 84; RESP 16; TEMP 36.3; O2SAT 96
[2021-05-16 22:00] VITALS: BP 119/76; PULSE 78; RESP 18; TEMP 36.8; O2SAT 96
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
--- NOTE | 2021-05-17 04:16 | PC.NURSE ---
Ticks Pt still has several ticks on her body, she refuses to allow nurse to remove them all. However, staff was able to remove 15 ticks in addition to those removed on at the time of admission. Pt scratches herself, but avoids staff checking for more.Staff is not certain if this patient is still hosting more of these parasites. Staff will continue to check for more and remove them if found.
[2021-05-17 06:00] VITALS: BP 131/72; PULSE 88; RESP 18; TEMP 36.9; O2SAT 96
[2021-05-17] MEDS: apixaban 5 mg Tablet PO (09:37)
[2021-05-17] MEDS: fluoxetine 20 mg Capsule 40 MG PO (09:37)
[2021-05-17] MEDS: sulfamethoxazole-trimeth DS 160-800 mg Tablet 1 TAB PO (09:37)
[2021-05-17] MEDS: topiramate 100 mg Tablet 200 MG PO (09:38)
[2021-05-17] MEDS: spironolactone 25 mg Tablet 100 MG PO (09:38)
[2021-05-17] MEDS: atorvastatin 40 mg Tablet 20 MG PO (09:38)
[2021-05-17] MEDS: nicotine 21 mg Patch 1 PATCH TRANSDERMA (09:52)
--- NOTE | 2021-05-17 09:55 | PC.RESP ---
SMOKING CESSATION INFORMATION SENT TO PATIENT.
--- NOTE | 2021-05-17 10:18 | P.DS_ITS ---
Diagnoses at Discharge Discharge Diagnosis (1) Suicidal ideation: Status: Acute (2) Schizoaffective disorder: Status: Acute (3) Borderline intellectual functioning: Status: Acute Reason for Visit Reason for Visit: SI Hospital Course Hospital Course 41-year-old female with borderline intellectual functioning and history of schizoaffective disorder presented to the emergency department with complaint of suicidal ideation in the context of recent argument with family. Patient had similar presentation 6 months ago. Patient quickly reconstituted denying any suicidal ideation and denying any mood symptoms and was restarted on her home medication with no reports of any medication side effects. Patient was also notably due for her monthly Invega injection which she received while on the unit. Patient participated in unit milieu with no reports of any behavioral disturbances. Patient was not suicidal and did not endorse any psychiatric symptoms at the time of discharge and did not appear to pose an imminent threat of harm to self or others. Low to moderate risk of harm to self given no current suicidal ideation and no current endorsement of any psychiatric symptoms although patient's risk may be elevated if she is noncompliant with her medication or medication management follow-up. Risk mitigation included psychiatric hospitalization for observation for any persisting suicidal ideation or behaviors, restarting medication for medication stabilization as well as coordination for post discharge mental health care follow-up. Patient was able to communicate her understanding of the need to be compliant with her medication and medication management follow-up in order to further mitigate her risk of harm to self and others. Involuntary Hold Information 96 Hour Hold: 96 Hour Involuntary Admission: No Mental Status Exam MSE Comments: Sitting in the day room, appropriately dressed wearing hospital scrubs, calm, cooperative, good eye contact Psychomotor activity is neither increased nor decreased, no agitation I feel good, congruent affect, full range, not labile Alert and oriented to person, place, time Memory and concentration appear to be fair per interview Thought process, linear, no flight of ideas, no looseness of associations Thought content, no delusions, does not appear to be attending to any internal stimuli, no suicidal or homicidal ideation Insight and judgment are fair Discharge Data Vitals: Last Vital Signs Temp 98.4 F 05/17/21 06:00 Pulse 88 05/17/21 06:00 Resp 18 05/17/21 06:00 BP 131/72 05/17/21 06:00 Pulse Ox 96 05/17/21 06:00 Discharge Plan Discharge Patient Disposition: Home Condition: Stable Prescriptions: New sulfamethoxazole-trimethoprim 800-160 mg Tablet 1 tab PO BID Qty: 12 RF: 0 Continued paliperidone palmitate 234 mg/1.5 mL syringe See Rx Instructions .ROUTE .COMPLEX 30 Days Qty: 1 RF: 3 fenofibrate micronized 200 mg capsule 200 mg PO DAILY 30 Days Qty: 30 RF: 1 Eliquis 5 mg tablet 5 mg PO BID 30 Days Qty: 60 RF: 1 fluoxetine 40 mg capsule 40 mg PO DAILY RF: 0 spironolactone 100 mg tablet 100 mg PO BID RF: 0 simvastatin 40 mg tablet 40 mg PO DAILY RF: 0 topiramate 100 mg tablet 200 mg PO BID RF: 0 Invega Sustenna 234 mg/1.5 mL syringe 234 mg IM DIRECTED RF: 0 Discharge Orders: Discharge Order (Routine); Ordered 05/17/21 Ordered By: Nunu Ruby Referrals: Lise Lopez MD [[place]] - 06/11/21 10:45 am (This appointment is in [place] due to Dr Lopez book up in [facility].) Discharge Diet: Usual diet Discharge Activity: Resume usual activity Patient Instructions: Opioid Safety Discharge Attestations NPU Time Spent in Discharge Care*: greater than 30 min Status at Discharge: Cognitive status at discharge: cognitively intact , Behavioral status at discharge: cooperative , Functional status at discharge: independent ambulation Overall status at discharge: patient is back to baseline Coding Level of Care Code Acute [facility] [place] note Diagnoses Suicidal ideation R45.851 Schizoaffective disorder F25.9 Borderline intellectual functioning R41.83
[2021-05-17 10:47] VITALS: BP 131/72; PULSE 88; RESP 18; TEMP 36.9; O2SAT 96
[2021-05-17 13:46] VITALS: BP 113/72; PULSE 77; RESP 16; TEMP 37.6; O2SAT 99
== END 2021-05-17 14:21 | disposition home or self-care (01) | DRG 885 ==
LOC: ER 17:49 → NP 20:38
PROVIDERS: Physician Assistant; Admitting Provider Psychiatry & Neurology Psychiatry; Emergency Provider Family Medicine; Visit Provider Psychiatry & Neurology Psychiatry
DX: F25.9 Schizoaffective disorder, unspecified (principal); R45.851 Suicidal ideations; R41.83 Borderline intellectual functioning; Z62.820 Parent-biological child conflict; E78.00 Pure hypercholesterolemia, unspecified; F17.210 Nicotine dependence, cigarettes, uncomplicated; Z79.01 Long term (current) use of anticoagulants; Z72.89 Other problems related to lifestyle; Z91.5 Personal history of self-harm; Z86.59 Personal history of other mental and behavioral disorders
CPT/HCPCS: 36415; 80053; 80306; 80307; 81001; 84703; 85025; 96372; 99285

== ENCOUNTER 2021-06-08 18:49 | Inpatient (IN) | payer MEDICAID, SELFPAY ==
[2021-06-08 18:57] VITALS: BP 157/80; PULSE 120; RESP 20; TEMP 36.9; O2SAT 98; BMI 51.0
[2021-06-08 19:36] LABS: Basophils # 0.1 10^3/uL (0.0-0.1); Basophils % 0.5 %; Eosinophils # 0.6 10^3/uL (0.0-0.8); Eosinophils % 6.2 %; Hematocrit 44.2 % (37.0-47.0); Hemoglobin 14.9 g/dL (11.5-15.3); Lymphocytes # 2.3 10^3/uL (0.8-4.8); Lymphocytes % 24.4 %; Mean Corpuscular HGB Conc 33.7 g/dL (30.0-36.0); Mean Corpuscular Hemoglobin 32.7 pg (28.0-34.0); Mean Corpuscular Volume 97.1 fL (81-99); Mean Platelet Volume 9.6 fL (7.4-10.4); Monocytes # 1.1 10^3/uL (0.2-0.9); Monocytes % 11.7 %; Neutrophils % 56.8 %; Nucleated Red Blood Cells % 0 %; Platelet Count 320 10^3/cmm (130-400); Red Blood Count 4.55 10^6/uL (4.1-5.3); Red Cell Distribution Width 12.7 % (12.1-15.1); White Blood Count 9.5 10^3/uL (4.0-10.0)
[2021-06-08 19:53] LABS: HCG Qualitative Urine. Negative (Negative)
[2021-06-08 20:02] LABS: Amphetamines Screen Urine Negative (Negative); Barbiturates Screen Urine Negative (Negative); Benzodiazepines Screen Urine Negative (Negative); Cocaine Screen Urine Negative (Negative); Opiate Screen Urine Negative (Negative); PCP Screen Urine Negative (Negative); THC Screen Urine Negative (Negative)
[2021-06-08 20:03] LABS: Alanine Aminotransferase 18 U/L (0-33); Albumin Level 3.9 g/dL (3.5-5.2); Alkaline Phosphatase 90 IU/L (35-105); Anion Gap 18.8 (5-19); Aspartate Amino Transferase 14 U/L (0-32); Blood Urea Nitrogen 6 mg/dL (6-20); Calcium 8.7 mg/dL (8.5-10.5); Carbon Dioxide 19 mmol/L (22-29); Chloride 104 mmol/L (98-107); Globulin 2.7 g/dL (1.3-4.6); Glomerular Filtration Rate 78.7 mL/min (90-130); Glucose 114 mg/dL (65-115); Osmolality Calculated 286 mOsm/kg (285-295); Sodium 139 mmol/L (136-145); Total Bilirubin 0.3 mg/dL (0.15-1.2); Total Protein 6.6 g/dL (6.6-8.7)
[2021-06-08 20:10] LABS: Acetaminophen < 5.0 ug/mL (10-30); Alcohol Level < 10 mg/dL (0-10); Potassium 2.8 mmol/L (3.5-5.1); Salicylate < 0.3 mg/dL (3-10)
[2021-06-08] MEDS: potassium chloride ER 20 mEq Tablet 40 MEQ PO (20:24)
[2021-06-08 20:51] VITALS: BP 115/76; PULSE 93; RESP 16; O2SAT 95
[2021-06-08 22:00] VITALS: BP 133/86; PULSE 101; RESP 18; TEMP 36.5; O2SAT 97
--- NOTE | 2021-06-08 23:02 | W.ED.PSYCH ---
HPI - Psych General: Chief Complaint: Psychiatric Symptoms Stated Complaint: SUICIDAL IDEATIONS Time Seen by Provider: 06/08/21 18:55 Source: patient, EMS, RN notes reviewed and old records reviewed Mode of arrival: EMS Limitations: no limitations History of Present Illness: HPI Narrative: Patient is a 41-year-old female with a history of developmental delay and multiple inpatient psychiatric admissions. She presents to the emergency department today with suicidal ideations. She states that her symptoms have been on and off for about 2 weeks but is getting worse. She plans to overdose on some of her medications. She would like some help and is here to be evaluated. complaint: suicidal ideation Onset (ago): week(s) (2) Duration: getting worse History of same: Yes Relieving factors: none Exacerbating factors: none Associated psychiatric symptoms: suicidal ideation Associated symptoms: Reports suicidal ideation; Deny auditory hallucinations, visual hallucinations, delusions, depression, homicidal ideation or racing thoughts Treatments prior to arrival: none If self harm: admits thoughts of self harm and has plan Review of Systems General: Reports: 10 or more systems reviewed and unremarkable except in HPI and below Psych: Reports: suicidal ideation; Denies: depression, visual hallucinations, auditory hallucinations or homicidal ideation [facility] ED PFSH: Medical History MDD (major depressive disorder), recurrent, severe, with psychosis Parent-child relational problem Psychiatric care Schizoaffective disorder Social History Current gender identity: Female Female Reproductive History: Date of last menstrual period: 04/16/21 Physical Exam Const: COMMON NORMALS: no acute distress, average body habitus, patient oriented x3, no limitations, healthy appearing, alert and well nourished HENMT: COMMON NORMALS: normocephalic, atraumatic and moist oral mucous membranes HEAD & SCALP: normocephalic and atraumatic Neck/C-Spine: COMMON NORMALS: no meningeal signs and no JVD Resp: COMMON NORMALS: normal respiratory effort, No retractions, No use of accessory muscles, clear to auscultation bilaterally and percussion normal AUSCULTATION: clear to auscultation bilaterally PERCUSSION: percussion normal Cardio: COMMON NORMALS: no JVD, regular rate, regular rhythm, S1 normal heart sound present, S2 normal heart sound present, No gallops present (Cardio), No clicks present (Cardio), No murmurs present (Cardio), No rub (Cardio) and Peripheral pulses 2+ throughout RATE: regular rate RHYTHM: regular rhythm HEART SOUNDS: S1 normal heart sound present and S2 normal heart sound present PERIPHERAL PULSES: Peripheral pulses 2+ throughout GI: COMMON NORMALS: Normal to inspection, nondistended, normoactive bowel sounds present, Soft to palpation, non-tender, No hepatosplenomegaly present, no masses and no bruits PALPATION: Yes Soft to palpation and Yes No hepatosplenomegaly present Extremity: COMMON NORMALS: normal to inspection, full ROM, capillary refill normal, no calf tenderness and no pedal edema Neuro: COMMON NORMALS: patient oriented x3 SENSORIUM/ORIENTATION: Yes alert MENINGEAL SIGNS: Yes no meningeal signs Psych: THOUGHT CONTENT: No delusions Course Consultations: Consultation #1: Discussed the patient with Dr. Monzon, psychiatrist and he kindly accepted patient to his service. Time: 20:31 Vital Signs: Vital signs: Vital Signs Temperature 98.4 F 06/08/21 18:57 Pulse Rate 93 06/08/21 20:51 Respiratory Rate 16 06/08/21 20:51 Blood Pressure 115/76 06/08/21 20:51 Pulse Oximetry 95 06/08/21 20:51 MDM - Psych MDM Narrative: Medical decision making narrative: 41-year-old female patient who presents to the emergency department with suicidal ideation. She is medically cleared, she does have hypokalemia that is uncomplicated. She is admitted to the neuropsychiatric unit for further evaluation and management. She was given potassium replacement in the ED and will be continued in the hospital. Medical Records: Attestation: I reviewed the patient's medical records. Lab Data: Attestation: I reviewed the patient's lab results. Labs: Lab Results 06/08/21 06/08/21 06/08/21 Range/Units 19:20 19:20 19:20 WBC 9.5 (4.0-10.0) 10^3/ uL RBC 4.55 (4.1-5.3) 10^6/u L Hgb 14.9 (11.5-15.3) g/dL Hct 44.2 (37.0-47.0) % MCV 97.1 (81-99) fL MCH 32.7 (28.0-34.0) pg MCHC 33.7 (30.0-36.0) g/dL RDW 12.7 (12.1-15.1) % Plt Count 320 (130-400) 10^3/c mm MPV 9.6 (7.4-10.4) fL Neut % (Auto) 56.8 % Lymph % (Auto) 24.4 % [place] % (Auto) 11.7 % Eos % (Auto) 6.2 % Baso % (Auto) 0.5 % Neut # (Auto) 5.40 (1.8-7.7) 10^3/u L Lymph # (Auto) 2.3 (0.8-4.8) 10^3/u L [place] # (Auto) 1.1 H (0.2-0.9) 10^3/u L Eos # (Auto) 0.6 (0.0-0.8) 10^3/u L Baso # (Auto) 0.1 (0.0-0.1) 10^3/u L Nucleated RBC % (a uto) 0 % Nucleated RBCs # 0.0 /100WBC Sodium 139 (136-145) mmol/L Potassium 2.8 L* (3.5-5.1) mmol/L Chloride 104 (98-107) mmol/L Carbon Dioxide 19 L (22-29) mmol/L Anion Gap 18.8 (5-19) BUN 6 (6-20) mg/dL Creatinine 0.8 (0.5-0.9) mg/dL GFR Calculation 78.7 L (90-130) mL/min Glucose 114 (65-115) mg/dL Calculated Osmolal ity 286 (285-295) mOsm/k g Calcium 8.7 (8.5-10.5) mg/dL Total Bilirubin 0.3 (0.15-1.2) mg/dL AST 14 (0-32) U/L ALT 18 (0-33) U/L Alkaline Phosphata se 90 (35-105) IU/L Total Protein 6.6 (6.6-8.7) g/dL Albumin 3.9 (3.5-5.2) g/dL Globulin 2.7 (1.3-4.6) g/dL HCG, Qual Negative (Negative) Salicylates < 0.3 L (3-10) mg/dL Urine Opiates Scre en (Negative) ng/mL Acetaminophen < 5.0 L (10-30) ug/mL Ur Barbiturates Sc reen (Negative) ng/mL Ur Phencyclidine S crn (Negative) ng/mL Ur Amphetamines Sc reen (Negative) ng/mL U Benzodiazepines Scrn (Negative) ng/mL Urine Cocaine Scre en (Negative) ng/mL U Marijuana (THC) Screen (Negative) ng/mL Ethyl Alcohol < 10 (0-10) mg/dL 06/08/21 Range/Units 19:25 WBC (4.0-10.0) 10^3/ uL RBC (4.1-5.3) 10^6/u L Hgb (11.5-15.3) g/dL Hct (37.0-47.0) % MCV (81-99) fL MCH (28.0-34.0) pg MCHC (30.0-36.0) g/dL RDW (12.1-15.1) % Plt Count (130-400) 10^3/c mm MPV (7.4-10.4) fL Neut % (Auto) % Lymph % (Auto) % [place] % (Auto) % Eos % (Auto) % Baso % (Auto) % Neut # (Auto) (1.8-7.7) 10^3/u L Lymph # (Auto) (0.8-4.8) 10^3/u L [place] # (Auto) (0.2-0.9) 10^3/u L Eos # (Auto) (0.0-0.8) 10^3/u L Baso # (Auto) (0.0-0.1) 10^3/u L Nucleated RBC % (a uto) % Nucleated RBCs # /100WBC Sodium (136-145) mmol/L Potassium (3.5-5.1) mmol/L Chloride (98-107) mmol/L Carbon Dioxide (22-29) mmol/L Anion Gap (5-19) BUN (6-20) mg/dL Creatinine (0.5-0.9) mg/dL GFR Calculation (90-130) mL/min Glucose (65-115) mg/dL Calculated Osmolal ity (285-295) mOsm/k g Calcium (8.5-10.5) mg/dL Total Bilirubin (0.15-1.2) mg/dL AST (0-32) U/L ALT (0-33) U/L Alkaline Phosphata se (35-105) IU/L Total Protein (6.6-8.7) g/dL Albumin (3.5-5.2) g/dL Globulin (1.3-4.6) g/dL HCG, Qual (Negative) Salicylates (3-10) mg/dL Urine Opiates Scre en Negative (Negative) ng/mL Acetaminophen (10-30) ug/mL Ur Barbiturates Sc reen Negative (Negative) ng/mL Ur Phencyclidine S crn Negative (Negative) ng/mL Ur Amphetamines Sc reen Negative (Negative) ng/mL U Benzodiazepines Scrn Negative (Negative) ng/mL Urine Cocaine Scre en Negative (Negative) ng/mL U Marijuana (THC) Screen Negative (Negative) ng/mL Ethyl Alcohol (0-10) mg/dL Discharge Plan Discharge Patient Disposition: Admitted As Inpatient Admit Provider: Naldo Monzon Clinical Impression: Suicidal ideation, Borderline intellectual functioning, Hypokalemia Condition: Stable Coding Level of Care Code ED Psychiatric Social Worker Supervisor for Mariel Marcelino
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
[2021-06-09 06:00] VITALS: BP 112/74; PULSE 81; RESP 18; TEMP 36.3; O2SAT 95; BMI 51.0
[2021-06-09] MEDS: fluoxetine 20 mg Capsule 40 MG PO (09:03)
[2021-06-09] MEDS: atorvastatin 40 mg Tablet 20 MG PO (09:03)
[2021-06-09] MEDS: topiramate 100 mg Tablet 200 MG PO ×2 (09:04→17:06)
[2021-06-09] MEDS: potassium chloride ER 20 mEq Tablet 40 MEQ PO ×2 (09:04→17:06)
[2021-06-09] MEDS: apixaban 5 mg Tablet PO ×2 (09:04→17:05)
[2021-06-09] MEDS: spironolactone 25 mg Tablet 100 MG PO ×2 (09:04→17:05)
[2021-06-09 14:00] VITALS: BP 112/70; PULSE 85; RESP 18; TEMP 36.3; O2SAT 96
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
[2021-06-09 21:45] VITALS: BP 92/62; PULSE 78; RESP 16; TEMP 36.6; O2SAT 95
[2021-06-10 06:00] VITALS: BP 94/54; PULSE 102; RESP 16; TEMP 36.7; O2SAT 96
[2021-06-10] MEDS: potassium chloride ER 20 mEq Tablet 40 MEQ PO ×2 (09:49→18:29)
[2021-06-10] MEDS: topiramate 100 mg Tablet 200 MG PO ×2 (09:50→18:29)
[2021-06-10] MEDS: apixaban 5 mg Tablet PO ×2 (09:50→18:29)
[2021-06-10] MEDS: atorvastatin 40 mg Tablet 20 MG PO (09:50)
[2021-06-10] MEDS: fluoxetine 20 mg Capsule 40 MG PO (09:50)
[2021-06-10] MEDS: spironolactone 25 mg Tablet 100 MG PO ×2 (10:51→18:29)
[2021-06-10 14:00] VITALS: BP 105/59; PULSE 75; RESP 18; TEMP 36.6; O2SAT 95
--- NOTE | 2021-06-10 15:00 | P.PN_ITS ---
Subjective [facility] Subjective: Interval history: Generally presents today as she often does not causing problems but not being very engaged in treatment. She is endorsing that she possibly wants to go to some [place] [facility] [place] or some other living arrangement. She is working with social work team to get a better sense of what the challenges are in her current arrangement and we will try to get collateral information on her actual medication adherence. She is fairly isolative and sleeping a lot. Mental Status Exam MSE Comments: This is a morbidly obese white female with significant hirsutism with hospital scrubs on, with limited grooming and adequate eye contact. No abnormal movements except for psychomotor retardation. Cooperative with exam and no acute distress. Speech was limited with decreased rate and volume with some dysarthria. Mood described as okay, affect slightly subdued. Thought process organized. Thought content: Patient denied suicidal or homicidal ideation, there were no delusions reported or noted, she denied any auditory or visual hallucinations. Attention and concentration appeared intact and memory appeared reliable but none were formally tested. She is alert and oriented x3. Insight and judgment appear limited, impulse control appears fair and intellectual ability appears impaired. Vitals/I&O/Wt Last Vital Signs Temp 97.9 F 06/10/21 14:00 Pulse 75 06/10/21 14:00 Resp 18 06/10/21 14:00 BP 105/59 06/10/21 14:00 Pulse Ox 95 06/10/21 14:00 Data [facility] : 06/08/21 19:20 06/08/21 19:20 A&P Additional A&P Information (1) Suicidal ideation: (2) Hypokalemia: (3) Schizoaffective disorder: (4) Borderline intellectual functioning: Additional A&P Information This is a 41-year-old white female with a long history of mental health issues, cognitive impairment and limited social functioning reporting suicidal thoughts and possibly being nonadherent with medication. 1. Continue current medication. 2. Continue every 15 minute checks for safety. 3. Encourage individual, group and milieu therapies. 4. We will gain collateral information from her outpatient treatment team to gain a better understanding of her current presentation. Involuntary Hold Information 96 Hour Hold: 96 Hour Involuntary Admission: No Attestations [facility] Medical Necessity Statement*: Inpatient hospitalization is medically necessary and the clinically appropriate intervention at this time. We will monitor medications and make changes as indicated. Likely length of stay 2-4 days. Coding Level of Care Code Acute Chemicals Distiller for Chg Ryland
[2021-06-10 21:11] VITALS: BP 137/103; PULSE 80; RESP 16; TEMP 36.7; O2SAT 96
[2021-06-11 05:57] VITALS: BP 105/71; PULSE 77; RESP 18; TEMP 36.5; O2SAT 95
[2021-06-11] MEDS: spironolactone 25 mg Tablet 100 MG PO ×2 (09:07→20:18)
[2021-06-11] MEDS: topiramate 100 mg Tablet 200 MG PO ×2 (09:08→20:19)
[2021-06-11] MEDS: apixaban 5 mg Tablet PO ×2 (09:08→20:19)
[2021-06-11] MEDS: atorvastatin 40 mg Tablet 20 MG PO (09:08)
[2021-06-11] MEDS: fluoxetine 20 mg Capsule 40 MG PO (09:08)
[2021-06-11] MEDS: potassium chloride ER 20 mEq Tablet 40 MEQ PO ×2 (09:08→20:19)
[2021-06-11 14:00] VITALS: BP 95/61; PULSE 75; RESP 18; TEMP 36.8; O2SAT 97
--- NOTE | 2021-06-11 17:09 | PM.NPN ---
Subjective NPU Subjective: Interval history: Sonia presents today reporting that things are going a little better. Concerns regarding where she will go now seem to be working of self through as she had social studies teacher able to connect with her mother who is saying she can likely come there after discharge. She reports that she is feeling safer and we discussed the possibility of discharge tomorrow. Mental Status Exam MSE Comments: This is a morbidly obese white female with significant hirsutism with hospital scrubs on, with limited grooming and adequate eye contact. No abnormal movements except for continued psychomotor retardation with some improvement. Cooperative with exam and no acute distress. Speech was limited with decreased rate and volume with some dysarthria. Mood described as a little better, affect slightly subdued. Thought process organized. Thought content: Patient denied suicidal or homicidal ideation, there were no delusions reported or noted, she denied any auditory or visual hallucinations. Attention and concentration appeared intact and memory appeared reliable but none were formally tested. She is alert and oriented x3. Insight and judgment appear limited, impulse control appears fair and intellectual ability appears impaired. Vitals/I&O/Wt Last Vital Signs Temp 98.3 F 06/11/21 21:58 Pulse 77 06/11/21 21:58 Resp 18 06/11/21 21:58 BP 102/65 06/11/21 21:58 Pulse Ox 94 06/11/21 21:58 Data NPU : 06/08/21 19:20 06/08/21 19:20 A&P Additional A&P Information (1) Suicidal ideation: (2) Hypokalemia: (3) Schizoaffective disorder: (4) Borderline intellectual functioning: Additional A&P Information This is a 41-year-old white female with a long history of mental health issues, cognitive impairment and limited social functioning reporting suicidal thoughts and possibly being nonadherent with medication. 1. Continue current medication. 2. Continue every 15 minute checks for safety. 3. Encourage individual, group and milieu therapies. 4. We will gain collateral information from her outpatient treatment team to gain a better understanding of her current presentation. Involuntary Hold Information 96 Hour Hold: 96 Hour Involuntary Admission: No Attestations NPU Medical Necessity Statement*: Inpatient hospitalization is medically necessary and the clinically appropriate intervention at this time. We will monitor medications and make changes as indicated. Likely length of stay 1-3 days. 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
--- NOTE | 2021-06-11 20:20 | PC.NURSE ---
HS meds given at this time as follows: eliquis 5mg po, potassium 40meq po, aldactone 100mg po, and topamax 200mg po.
[2021-06-11 21:58] VITALS: BP 102/65; PULSE 77; RESP 18; TEMP 36.8; O2SAT 94
[2021-06-12 05:59] VITALS: BP 133/73; PULSE 93; RESP 16; TEMP 36.7; O2SAT 94
[2021-06-12] MEDS: apixaban 5 mg Tablet PO (07:48)
[2021-06-12] MEDS: topiramate 100 mg Tablet 200 MG PO (07:48)
[2021-06-12] MEDS: spironolactone 25 mg Tablet 100 MG PO (07:49)
[2021-06-12] MEDS: atorvastatin 40 mg Tablet 20 MG PO (07:49)
[2021-06-12] MEDS: fluoxetine 20 mg Capsule 40 MG PO (07:49)
[2021-06-12 12:25] VITALS: BP 133/73; PULSE 93; RESP 16; TEMP 36.7; O2SAT 94
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
== END 2021-06-12 13:50 | disposition home or self-care (01) | DRG 885 ==
LOC: ER 19:30 → NP 20:45
PROVIDERS: Emergency Medicine; Admitting Provider Psychiatry & Neurology Psychiatry; Emergency Provider Family Medicine; Visit Provider Psychiatry & Neurology Psychiatry
DX: F25.9 Schizoaffective disorder, unspecified (principal); R45.851 Suicidal ideations; Z68.43 Body mass index [BMI] 50.0-59.9, adult; F33.9 Major depressive disorder, recurrent, unspecified; E87.6 Hypokalemia; R41.83 Borderline intellectual functioning; E66.01 Morbid (severe) obesity due to excess calories; E78.00 Pure hypercholesterolemia, unspecified; L68.0 Hirsutism; F17.210 Nicotine dependence, cigarettes, uncomplicated; Z79.01 Long term (current) use of anticoagulants
CPT/HCPCS: 80053; 80306; 80307; 81025; 85025; 99285

== ENCOUNTER 2021-07-04 09:30 | Emergency (ER) | payer MEDICAID, SELFPAY ==
--- NOTE | 2021-07-04 09:32 | W.ED.PSYCH ---
HPI - Psych General: Chief Complaint: Psychiatric Symptoms Stated Complaint: SUICIDAL IDEATIONS Time Seen by Provider: 07/04/21 09:31 History of Present Illness: HPI Narrative: Ms. Monzon is a 41-year-old lady with significant past medical history of schizoaffective disorder and bordering cognitive impairment who presents to the emergency department due to suicidal ideation. She has a longstanding history of hospitalizations for similar often associated with not taking her medications. She does endorse taking her medications are is concerned that they do not work. She was seen and evaluated for a PSR visit yesterday and got a Medicaid ride here however did not have a ride home so she wandered around [place] all night and began feeling suicidal. She denies any medical complaints or injuries at this time. She does have a history of suicide attempts with overdose. She is vague regarding possible methods. No other specific exacerbating or alleviating factors identified. She feels safe at home. Review of Systems General: Reports: 10 or more systems reviewed and unremarkable except in HPI and below Narrative: CONSTITUTIONAL: denies fever, fatigue, weakness EYES - denies pain, denies loss of vision EARS - denies ear issues. NOSE - denies congestion or rhinorrhea. CARDIOVASCULAR - denies chest pain and palpitations RESPIRATORY - denies shortness of breath and cough GASTROINTESTINAL - denies abdominal pain, no nausea vomiting, no changes in bowel habits GENITOURINARY - denies dysuria or urinary frequency MUSCULOSKELETAL- denies deformity or pain SKIN - denies rashes or new changed skin lesions NEUROLOGIC - denies focal weakness or sensory changes PSYCH ? see HPI PFSH ED PFSH: Medical History MDD (major depressive disorder), recurrent, severe, with psychosis Parent-child relational problem Psychiatric care Schizoaffective disorder Social History Current gender identity: Female Female Reproductive History: Date of last menstrual period: 04/16/21 Physical Exam Narrative: EXAM NARRATIVE: GENERAL/CONSTITUTIONAL - well-appearing. No acute distress. Eyes - PERRL, no conjunctival injection ENMT - Atraumatic external nose and ears. Moist mucous membranes NECK - supple. trachea midline CARDIOVASCULAR - regular rate and rhythm. RESPIRATORY - No retractions or accessory muscle use. ABDOMEN/GI - Nontender/Nondistended. MSK - Extremities without obvious deformity or injury SKIN - Warm, Dry NEURO - alert and appropriately oriented. Moves all extremities equally. PSYCH -normal affect, slightly depressed mood. Course ED course: - Patient was seen and evaluated by me at bedside - Patient placed on cardiac monitors, IV access obtained - Initial evaluation notable for no acute distress, nontoxic parents. No medical complaints at this time. Given provided history it is somewhat unclear with the patient endorses suicidal ideation due to current transportation issue or true change from baseline. -Psychiatry service consulted and came to about the patient. Per Dr. Monzon assessment patient can safely be discharged. - Upon serial reexamination after treatment the patient was similar - Based on patient history, evaluation, labs, and imaging as interpreted the most likely cause of the patient's condition is multifactorial - The results of ED evaluation were given to the patient including followup plan, and return precautions. The patient verbalized understanding and felt safe for discharge. - Patient discharged in satisfactory condition. Vital Signs: Vital signs: Vital Signs Temperature 98 F 07/04/21 15:00 Pulse Rate 74 07/04/21 15:00 Respiratory Rate 16 07/04/21 15:00 Blood Pressure 103/54 07/04/21 15:00 Pulse Oximetry 95 07/04/21 15:00 MDM - Psych Medical Records: Attestation: I reviewed the patient's medical records. Lab Data: Attestation: I reviewed the patient's lab results. Discharge Plan Discharge Patient Disposition: Home Clinical Impression: Psychiatric complaint Condition: Stable Prescriptions: No Action fenofibrate micronized 200 mg capsule 200 mg PO DAILY 30 Days Qty: 30 RF: 1 Excedrin Migraine 250-250-65 mg Tablet 3 tab PO PRN RF: 0 Eliquis 5 mg tablet 5 mg PO BID RF: 0 fluoxetine 40 mg capsule 40 mg PO DAILY RF: 0 spironolactone 100 mg tablet 100 mg PO BID RF: 0 simvastatin 40 mg tablet 40 mg PO DAILY RF: 0 topiramate 100 mg tablet 200 mg PO BID RF: 0 Invega Sustenna 234 mg/1.5 mL syringe 234 mg IM DIRECTED RF: 0 Discharge Orders: Discharge ED (Routine); Ordered 07/04/21 Ordered By: Aniket Carter Discharge Diet: Usual diet Discharge Activity: Resume usual activity Patient Instructions: Suicide Prevention for Adults (ED), Opioid Safety Activity Restrictions/Additional Instructions: Thank you for visiting the emergency department. You were seen and evaluated for social and psychiatric concerns. Please follow-up with your psychiatric care provider. Please return to the emergency department for thoughts of harming yourself or others, or anything else that you are concerned about and feel needs emergency department evaluation. Coding Level of Care Code ED Wearing Apparel Assembler for Mariel Marcelino
[2021-07-04 09:33] VITALS: BP 127/105; PULSE 83; RESP 15; TEMP 36.6; O2SAT 95; BMI 51.0
--- NOTE | 2021-07-04 11:20 | PC.PHAR ---
PT STATES SHE TAKES CARE OF HER OWN MEDICATIONS-PT STATES SHE TAKES HER MEDICATION IRREGULARLY-NOTES ARE MADE IN THE PHARMACY COMMENTS- MEDS HAVENT BEEN FILLED FOR A WHILE ELIQUIS WAS LAST FILLED 03/11/21 30D/S AT [facility]
[2021-07-04 15:00] VITALS: BP 103/54; PULSE 74; RESP 16; TEMP 36.6; O2SAT 95
== END 2021-07-04 16:25 | disposition home or self-care (01) ==
PROVIDERS: Emergency Provider Emergency Medicine
DX: R45.851 Suicidal ideations (principal); Z79.01 Long term (current) use of anticoagulants
CPT/HCPCS: 99284

== ENCOUNTER 2021-10-23 15:39 | Inpatient (IN) | payer MEDICAID, SELFPAY ==
[2021-10-23 15:47] VITALS: BP 136/87; PULSE 102; RESP 15; TEMP 36.9; O2SAT 96; BMI 51.0
--- NOTE | 2021-10-23 15:50 | ED.C_ITS ---
HPI - Psych General: Chief Complaint: Psychiatric Symptoms Stated Complaint: SI Time Seen by Provider: 10/23/21 15:47 History of Present Illness: HPI Narrative: Ms. Monzon is a 41-year-old lady with history of schizoaffective disorder and borderline intellectual functioning who presents to the emergency department due to suicidal ideation. She reports compliance with her medication regimen however has had increased stressors including break-up of boyfriend and financial stressors. Starting today she had increased thoughts of suicide. She has a plan to overdose on pills. She does have a history of overdose. She reports that she benefits from previous psychiatric hospitalizations. She otherwise denies medical complaints, no other specific exacerbating or alleviating factors identified. Patient denies actually taking an overdose of medication. Review of Systems General: Reports: 10 or more systems reviewed and unremarkable except in HPI and below PFSH ED PFSH: Medical History MDD (major depressive disorder), recurrent, severe, with psychosis Parent-child relational problem Psychiatric care Schizoaffective disorder Social History Smoking and tobacco status: current every day smoker Current gender identity: Female Female Reproductive History: Date of last menstrual period: 04/16/21 Physical Exam Narrative: EXAM NARRATIVE: GENERAL/CONSTITUTIONAL - well-appearing. No acute distress. Eyes - PERRL, no conjunctival injection ENMT - Atraumatic external nose and ears. Moist mucous membranes NECK - supple. trachea midline CARDIOVASCULAR - regular rate and rhythm. Normal peripheral perfusion RESPIRATORY - clear to auscultation bilaterally. No retractions or accessory muscle use. ABDOMEN/GI - Nontender/Nondistended. MSK - Extremities without obvious deformity or tenderness to palpation SKIN - Warm, Dry NEURO - alert and appropriately oriented. Moves all extremities equally. PSYCH -depressed mood and affect Course ED course: - Patient was seen and evaluated by me at bedside - Patient placed on cardiac monitors, IV access obtained - Initial evaluation notable for mood and affect, no acute distress, nontoxic - Labs notable for no significant abnormality to explain symptoms. - Based on ED evaluation at this point there is no obvious condition that would preclude the patient from inpatient management of psychiatric concerns. -Psychiatry service contacted and agreed admit the patient. - Patient was admitted without further deterioration or significant events. Vital Signs: Vital signs: Vital Signs Temperature 98.0 F 10/28/21 21:33 Pulse Rate 97 10/28/21 21:33 Respiratory Rate 18 10/28/21 21:33 Blood Pressure 131/101 10/28/21 21:33 Pulse Oximetry 98 10/28/21 21:33 MDM - Psych Medical Records: Attestation: I reviewed the patient's medical records. Lab Data: Attestation: I reviewed the patient's lab results. Labs: Lab Results 10/23/21 10/23/21 10/23/21 16:53 16:53 16:53 WBC 6.8 10^3/uL 10^3/ uL (4.0-10.0) RBC 4.45 10^6/uL 10^6 /uL (4.1-5.3) Hgb 14.1 g/dL g/dL (11.5-15.3) Hct 43.3 % % (37.0-47.0) MCV 97.3 fl fl (81-99) MCH 31.7 pg pg (28.0-34.0) MCHC 32.6 g/dL g/dL (30.0-36.0) RDW 12.0 % L % (12.1-15.1) Plt Count 284 10^3/cmm 10^3 /cmm (130-400) MPV 9.3 fL fL (7.4-10.4) Neut % (Auto) 44.9 % % Lymph % (Auto) 40.6 % % Dixon % (Auto) 11.6 % % Eos % (Auto) 2.5 % % Baso % (Auto) 0.3 % % Neut # (Auto) 3.06 10^3/uL 10^3 /uL (1.8-7.7) Lymph # (Auto) 2.8 10^3/uL 10^3/ uL (0.8-4.8) Dixon # (Auto) 0.8 10^3/uL 10^3/ uL (0.2-0.9) Eos # (Auto) 0.2 10^3/uL 10^3/ uL (0.0-0.8) Baso # (Auto) 0.0 10^3/uL 10^3/ uL (0.0-0.1) Nucleated RBC % (a uto) 0 % % Nucleated RBCs # 0.0 /100WBC /100W BC Sodium 140 mmol/L mmol/L (136-145) Potassium 4.2 mmol/L mmol/L (3.5-5.1) Chloride 106 mmol/L mmol/L (98-107) Carbon Dioxide 26 mmol/L mmol/L (22-29) Anion Gap 12.2 (5-19) BUN 14 mg/dL mg/dL (6-20) Creatinine 0.7 mg/dL mg/dL (0.5-0.9) GFR Calculation 91.8 mL/min mL/mi n (90-130) Glucose 93 mg/dL mg/dL (65-115) Calculated Osmolal ity 290 mOsm/kg mOsm/ kg (285-295) Calcium 8.3 mg/dL L mg/dL (8.5-10.5) Total Bilirubin 0.2 mg/dL mg/dL (0.15-1.2) AST 9 U/L U/L (0-32) ALT 17 U/L U/L (0-33) Alkaline Phosphata se 83 IU/L IU/L (35-105) Total Protein 6.5 g/dL L g/dL (6.6-8.7) Albumin 3.8 g/dL g/dL (3.5-5.2) Globulin 2.7 g/dL g/dL (1.3-4.6) HCG, Qual Negative (Negative) Salicylates < 0.3 mg/dL L mg/ dL (3-10) Urine Opiates Scre en Acetaminophen < 5.0 ug/mL L ug/ mL (10-30) Ur Barbiturates Sc reen Ur Phencyclidine S crn Ur Amphetamines Sc reen U Benzodiazepines Scrn Urine Cocaine Scre en U Marijuana (THC) Screen Ethyl Alcohol < 10 mg/dL mg/dL (0-10) 10/23/21 16:53 WBC RBC Hgb Hct MCV MCH MCHC RDW Plt Count MPV Neut % (Auto) Lymph % (Auto) Dixon % (Auto) Eos % (Auto) Baso % (Auto) Neut # (Auto) Lymph # (Auto) Dixon # (Auto) Eos # (Auto) Baso # (Auto) Nucleated RBC % (a uto) Nucleated RBCs # Sodium Potassium Chloride Carbon Dioxide Anion Gap BUN Creatinine GFR Calculation Glucose Calculated Osmolal ity Calcium Total Bilirubin AST ALT Alkaline Phosphata se Total Protein Albumin Globulin HCG, Qual Salicylates Urine Opiates Scre en Negative ng/mL ng /mL (Negative) Acetaminophen Ur Barbiturates Sc reen Negative ng/mL ng /mL (Negative) Ur Phencyclidine S crn Negative ng/mL ng /mL (Negative) Ur Amphetamines Sc reen Negative ng/mL ng /mL (Negative) U Benzodiazepines Scrn Negative ng/mL ng /mL (Negative) Urine Cocaine Scre en Negative ng/mL ng /mL (Negative) U Marijuana (THC) Screen Negative ng/mL ng /mL (Negative) Ethyl Alcohol EKG Data^: EKG 1: Attestation: I personally reviewed and interpreted this EKG as follows: EKG interpretation date: 10/23/21 EKG interpretation time: 17:55 Interpretation: Twelve-lead EKG shows a regular rhythm at a rate of 88. HI interval 141. QRS duration 80. QTc 406. Normal [place]. . Interpretation: Sinus rhythm. . Discharge Plan Discharge Patient Disposition: Placed in Observation Admit Provider: Naldo Monzon Clinical Impression: Suicidal ideation, Schizoaffective disorder, Borderline intellectual functioning Discharge Diet: Regular Discharge Activity: Resume usual activity Coding Level of Care Code ED Manager Materials Management for Mariel Marcelino
--- NOTE | 2021-10-23 16:11 | ECG_ITS ---
[facility] Test Date: 2021-10-23 Pat Name: Sonia Monzon Department: Room: Gender: Female [employer]ing [employer] Baler: : 1980 Requested By: Aniket Carter Order Number: [id number] Leela MD: Kaylee Velasco M.D. Measurements Intervals [place] Rate: 88 P: 64 RI: 141 QRS: 66 QRSD: 80 T: 64 QT: 360 QTc: 437 Interpretive Statements SINUS RHYTHM Compared to ECG 08/29/2020 00:15:16 No significant changes Electronically Signed On 10-24-2021 4:17:44 PERIODONTAL ASSISTANT by Kaylee Velasco M.D. [email or web address]
[2021-10-23 16:59] LABS: Basophils % 0.3 %; Eosinophils # 0.2 10^3/uL (0.0-0.8); Eosinophils % 2.5 %; Hematocrit 43.3 % (37.0-47.0); Hemoglobin 14.1 g/dL (11.5-15.3); Lymphocytes # 2.8 10^3/uL (0.8-4.8); Lymphocytes % 40.6 %; Mean Corpuscular HGB Conc 32.6 g/dL (30.0-36.0); Mean Corpuscular Hemoglobin 31.7 pg (28.0-34.0); Mean Corpuscular Volume 97.3 fl (81-99); Mean Platelet Volume 9.3 fL (7.4-10.4); Monocytes # 0.8 10^3/uL (0.2-0.9); Monocytes % 11.6 %; Neutrophils # 3.06 10^3/uL (1.8-7.7); Neutrophils % 44.9 %; Nucleated Red Blood Cells % 0 %; Platelet Count 284 10^3/cmm (130-400); Red Blood Count 4.45 10^6/uL (4.1-5.3); White Blood Count 6.8 10^3/uL (4.0-10.0)
[2021-10-23 17:06] VITALS: BP 113/85; PULSE 101; RESP 16; TEMP 36.6; O2SAT 96
[2021-10-23 17:19] LABS: Alanine Aminotransferase 17 U/L (0-33); Albumin Level 3.8 g/dL (3.5-5.2); Alkaline Phosphatase 83 IU/L (35-105); Anion Gap 12.2 (5-19); Aspartate Amino Transferase 9 U/L (0-32); Blood Urea Nitrogen 14 mg/dL (6-20); Calcium 8.3 mg/dL (8.5-10.5); Carbon Dioxide 26 mmol/L (22-29); Chloride 106 mmol/L (98-107); Globulin 2.7 g/dL (1.3-4.6); Glomerular Filtration Rate 91.8 mL/min (90-130); Glucose 93 mg/dL (65-115); Osmolality Calculated 290 mOsm/kg (285-295); Potassium 4.2 mmol/L (3.5-5.1); Sodium 140 mmol/L (136-145); Total Bilirubin 0.2 mg/dL (0.15-1.2); Total Protein 6.5 g/dL (6.6-8.7)
[2021-10-23 17:23] LABS: Acetaminophen < 5.0 ug/mL (10-30); Alcohol Level < 10 mg/dL (0-10); Salicylate < 0.3 mg/dL (3-10)
[2021-10-23 17:24] LABS: HCG Qualitative Urine. Negative (Negative)
[2021-10-23 17:51] LABS: Amphetamines Screen Urine Negative (Negative); Barbiturates Screen Urine Negative (Negative); Benzodiazepines Screen Urine Negative (Negative); Cocaine Screen Urine Negative (Negative); Opiate Screen Urine Negative (Negative); PCP Screen Urine Negative (Negative); THC Screen Urine Negative (Negative)
[2021-10-23 18:58] VITALS: BP 113/85; PULSE 101; RESP 16; TEMP 36.6; O2SAT 96
[2021-10-23 20:01] VITALS: BP 115/86; PULSE 98; RESP 16; TEMP 36.6; O2SAT 96
[2021-10-23] MEDS: trazodone 50 mg Tablet PO (21:14)
[2021-10-23] MEDS: hyDROXYzine 25 mg Capsule 50 MG PO (21:14)
[2021-10-23 22:00] VITALS: BP 115/86; PULSE 98; RESP 16; TEMP 36.6
[2021-10-24 06:00] VITALS: BP 102/60; PULSE 84; RESP 18; TEMP 36.9; O2SAT 94
[2021-10-24] MEDS: mupirocin oint 22 gm 1 APPLIC TOPICAL ×2 (10:09→18:11)
[2021-10-24] MEDS: topiramate 100 mg Tablet 200 MG PO ×2 (10:10→17:46)
[2021-10-24] MEDS: spironolactone 25 mg Tablet 100 MG PO ×2 (10:10→17:45)
[2021-10-24] MEDS: fluoxetine 20 mg Capsule 40 MG PO (10:10)
[2021-10-24 14:00] VITALS: BP 126/85; PULSE 91; RESP 18; TEMP 36.3; O2SAT 94
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
[2021-10-24 22:00] VITALS: BP 121/86; PULSE 86; RESP 18; TEMP 36.8; O2SAT 97
[2021-10-25 06:00] VITALS: RESP 17
[2021-10-25] MEDS: spironolactone 25 mg Tablet 100 MG PO ×2 (09:10→18:53)
[2021-10-25] MEDS: fluoxetine 20 mg Capsule 40 MG PO (09:10)
[2021-10-25] MEDS: topiramate 100 mg Tablet 200 MG PO ×2 (09:11→18:53)
[2021-10-25] MEDS: nicotine 21 mg Patch 1 PATCH TRANSDERMA (09:50)
[2021-10-25 13:56] VITALS: BP 124/77; PULSE 105; RESP 18; TEMP 36.3; O2SAT 94
--- NOTE | 2021-10-25 14:50 | W.PM.NPUPNS ---
Subjective NPU Subjective: Interval history: Patient being adherent with medication and endorsing that she is feeling better. We discussed the importance of her taking her medications avoid situations like this. We discussed the likelihood of discharge possibly on Thursday if we get the appropriate resources in place that she is stabilized on the medication. She denies any concerns and is in agreement with the plan. Mental Status Exam MSE Comments: This is a morbidly obese white female with significant hirsutism with hospital scrubs on, with limited grooming and adequate eye contact. No abnormal movements except for mild psychomotor retardation. Cooperative with exam and no acute distress. Speech was decreased rate and normal volume with some mild dysarthria. Mood described as fine, affect slightly subdued. Thought process organized. Thought content: Patient denied suicidal or homicidal ideation, there were no delusions reported or noted, she denied visual, but endorsed auditory hallucinations. Attention and concentration appeared intact and memory was unreliable but none were formally tested. She is alert and oriented x3. Insight and judgment appear limited, impulse control appears fair and intellectual ability appears impaired. Vitals/I&O/Wt Last Vital Signs Temp 97.4 F L 10/25/21 13:56 Pulse 105 H 10/25/21 13:56 Resp 18 10/25/21 13:56 BP 124/77 10/25/21 13:56 Pulse Ox 94 10/25/21 13:56 Data NPU : 10/23/21 16:53 10/23/21 16:53 A&P Additional A&P Information (1) Suicidal ideation: (2) Schizoaffective disorder: (3) Borderline intellectual functioning: Additional A&P Information This is a 41-year-old white female with a long history of mental health issues, cognitive impairment and limited social functioning reporting suicidal thoughts and some nonadherence with medication. 1. Continue current medication. 2. Continue every 15 minute checks for safety. 3. Encourage individual, group and milieu therapies. 4. Reconnected with [facility] outpatient services to see if they will still work with her to assist her in her outpatient recovery and overall treatment. Involuntary Hold Information 96 Hour Hold: 96 Hour Involuntary Admission: No Attestations NPU Medical Necessity Statement*: Inpatient hospitalization is medically necessary and the clinically appropriate intervention at this time. We will monitor medications and make changes as indicated. Likely length of stay 2-4 days. Coding Level of Care Code Acute Paper Cone Drying Machine Operator for Mariel Marcelino
[2021-10-25 20:29] VITALS: BP 131/60; PULSE 93; RESP 15; TEMP 36.3; O2SAT 96
[2021-10-25] MEDS: trazodone 50 mg Tablet PO (21:19)
[2021-10-25] MEDS: hyDROXYzine 25 mg Capsule 50 MG PO (21:19)
[2021-10-25] MEDS: atorvastatin 40 mg Tablet 20 MG PO (21:19)
[2021-10-25] MEDS: nicotine 2 mg Gum BUCCAL (21:19)
[2021-10-26 06:00] VITALS: BP 104/71; PULSE 88; RESP 14; TEMP 36.4; O2SAT 96
--- NOTE | 2021-10-26 07:54 | W.PM.NPUPNS ---
Subjective NPU Subjective: Interval history: Patient presents today reporting that she is doing well with the resumption of the medication. She continues to be able to identify that nonadherence was a real factor in her decompensation. She did not really give a great reason why she was rejecting the service and assistance that the case management team was providing. She reports is feeling better and hoping to go home. We discussed the fact that there is a good chance that she could be discharged on Thursday but that we want to make sure that [facility] has a chance to possibly reengage plus having a few more days of the medication to stabilize toward steady state before she goes back to her father's house. Mental Status Exam MSE Comments: This is a morbidly obese white female with significant hirsutism with hospital scrubs on, with limited grooming and adequate eye contact. No abnormal movements except for mild psychomotor retardation. Cooperative with exam and no acute distress. Speech was decreased rate and normal volume with some mild dysarthria. Mood described as okay, affect slightly subdued. Thought process organized. Thought content: Patient denied suicidal or homicidal ideation, there were no delusions reported or noted, she denied visual, but endorsed auditory hallucinations. Attention and concentration appeared intact and memory was unreliable but none were formally tested. She is alert and oriented x3. Insight and judgment appear limited, impulse control appears fair and intellectual ability appears impaired. Vitals/I&O/Wt Last Vital Signs Temp 97.6 F 10/26/21 06:00 Pulse 88 10/26/21 06:00 Resp 14 10/26/21 06:00 BP 104/71 10/26/21 06:00 Pulse Ox 96 10/26/21 06:00 Data NPU : 10/23/21 16:53 10/23/21 16:53 A&P Additional A&P Information (1) Suicidal ideation: (2) Schizoaffective disorder: (3) Borderline intellectual functioning: Additional A&P Information This is a 41-year-old white female with a long history of mental health issues, cognitive impairment and limited social functioning reporting suicidal thoughts and some nonadherence with medication. 1. Continue current medication. 2. Continue every 15 minute checks for safety. 3. Encourage individual, group and milieu therapies. 4. Reconnected with [facility] outpatient services to see if they will still work with her to assist her in her outpatient recovery and overall treatment. Involuntary Hold Information 96 Hour Hold: 96 Hour Involuntary Admission: No Attestations NPU Medical Necessity Statement*: Inpatient hospitalization is medically necessary and the clinically appropriate intervention at this time. We will monitor medications and make changes as indicated. Likely length of stay 2-4 days. Coding Level of Care Code Acute Gun Stock Checker for Mariel Marcelino
[2021-10-26] MEDS: fluoxetine 20 mg Capsule 40 MG PO (08:49)
[2021-10-26] MEDS: spironolactone 25 mg Tablet 100 MG PO ×2 (08:49→18:03)
[2021-10-26] MEDS: topiramate 100 mg Tablet 200 MG PO ×2 (08:49→18:03)
[2021-10-26] MEDS: nicotine 21 mg Patch 1 PATCH TRANSDERMA (09:02)
[2021-10-26 14:00] VITALS: BP 105/71; PULSE 81; RESP 17; TEMP 36.6; O2SAT 96
[2021-10-26] MEDS: hyDROXYzine 25 mg Capsule 50 MG PO (21:02)
[2021-10-26] MEDS: atorvastatin 40 mg Tablet 20 MG PO (21:02)
[2021-10-26 21:25] VITALS: BP 111/75; PULSE 90; RESP 18; TEMP 36.7; O2SAT 96
[2021-10-26] MEDS: trazodone 50 mg Tablet PO (22:16)
[2021-10-27 06:00] VITALS: BP 109/72; PULSE 94; RESP 18; TEMP 36.7; O2SAT 93; BMI 51.0
[2021-10-27] MEDS: nicotine 21 mg Patch 1 PATCH TRANSDERMA (08:44)
[2021-10-27] MEDS: fluoxetine 20 mg Capsule 40 MG PO (08:44)
[2021-10-27] MEDS: spironolactone 25 mg Tablet 100 MG PO ×2 (08:44→17:13)
[2021-10-27] MEDS: topiramate 100 mg Tablet 200 MG PO ×2 (08:44→17:13)
--- NOTE | 2021-10-27 09:13 | P.NPUPN_ITS ---
Subjective NPU Subjective: Interval history: Sonia presents today unchanged. She reports that she is doing better since we restart the medication and denies any issues. Once again reviewed a plan for discharge in the next 48 hours with hopes that she can get reconnected with [facility] and possibly even case management prior to returning to her father's house which is the plan. She denied any problems with eating or sleeping or medication side effects. Mental Status Exam MSE Comments: This is a morbidly obese white female with significant hirsutism with hospital scrubs on, with limited grooming and adequate eye contact. No abnormal movements except for mild psychomotor retardation. Cooperative with exam and no acute distress. Speech was decreased rate and normal volume with some mild dysarthria. Mood described as pretty good, affect slightly subdued. Thought process organized. Thought content: Patient denied suicidal or homicidal ideation, there were no delusions reported or noted, she denied visual or auditory hallucinations. Attention and concentration appeared intact and memory was unreliable but none were formally tested. She is alert and oriented x3. Insight and judgment appear limited, impulse control appears fair and intellectual ability appears impaired. Vitals/I&O/Wt Last Vital Signs Temp 98.0 F 10/27/21 06:00 Pulse 94 10/27/21 06:00 Resp 18 10/27/21 06:00 BP 109/72 10/27/21 06:00 Pulse Ox 93 10/27/21 06:00 Weight last 48 hrs Weight 122.47 kg Data NPU : 10/23/21 16:53 10/23/21 16:53 A&P Additional A&P Information (1) Suicidal ideation: (2) Schizoaffective disorder: (3) Borderline intellectual functioning: Additional A&P Information This is a 41-year-old white female with a long history of mental health issues, cognitive impairment and limited social functioning reporting suicidal thoughts and some nonadherence with medication. 1. Continue current medication. 2. Continue every 15 minute checks for safety. 3. Encourage individual, group and milieu therapies. 4. Reconnected with [facility] outpatient services to see if they will still work with her to assist her in her outpatient recovery and overall treatment. Involuntary Hold Information 96 Hour Hold: 96 Hour Involuntary Admission: No Attestations NPU Medical Necessity Statement*: Inpatient hospitalization is medically necessary and the clinically appropriate intervention at this time. We will monitor medications and make changes as indicated. Likely length of stay 1-3 days. Coding Level of Care Code Acute Bisque Kiln Placer for Mariel Marcelino
[2021-10-27 14:00] VITALS: BP 109/72; PULSE 86; RESP 18; TEMP 36.8; O2SAT 96
[2021-10-27 20:26] VITALS: BP 104/66; PULSE 87; RESP 16; TEMP 36.5; O2SAT 98
[2021-10-27] MEDS: atorvastatin 40 mg Tablet 20 MG PO (20:58)
[2021-10-28 06:00] VITALS: RESP 17
[2021-10-28] MEDS: fluoxetine 20 mg Capsule 40 MG PO (08:49)
[2021-10-28] MEDS: topiramate 100 mg Tablet 200 MG PO ×2 (08:50→17:34)
--- NOTE | 2021-10-28 12:50 | NPU.GN ---
[facility] Villagomez / Discussion General Mood of Group: Sonia did not attend group this morning she wanted to sleep.
[2021-10-28 14:00] VITALS: BP 121/73; PULSE 83; RESP 18; TEMP 36.3; O2SAT 96
[2021-10-28] MEDS: spironolactone 25 mg Tablet 100 MG PO (17:34)
[2021-10-28 18:14] VITALS: BP 121/73; PULSE 83; RESP 18; TEMP 36.3; O2SAT 96
--- NOTE | 2021-10-28 19:37 | P.NPUPN_ITS ---
Subjective NPU Subjective: Interval history: Patient presents today reporting that she is excited about the prospect of discharge. We collaborated with her father to ensure that everything was fine with her returning home. She endorsed a plan to continue with her medications and we worked with her reconnect with [facility] [place] to give the highest level of care they are able to give given her circumstance. Unfortunately her ride kept getting postponed and then was canceled which has happened more often with Medicaid transport and transport overall. We agreed to discharge in the morning with rides reportedly secured. Mental Status Exam MSE Comments: This is a morbidly obese white female with significant hirsutism with hospital scrubs on, with limited grooming and adequate eye contact. No abnormal movements except for mild psychomotor retardation. Cooperative with exam and no acute distress. Speech was decreased rate and normal volume with some mild dysarthria. Mood described as pretty good, affect slightly subdued. Thought process organized. Thought content: Patient denied suicidal or dwayne icidal ideation, there were no delusions reported or noted, she denied visual or auditory hallucinations. Attention and concentration appeared intact and memory was unreliable but none were formally tested. She is alert and oriented x3. Insight and judgment appear limited, impulse control appears fair and intellectual ability appears impaired. Vitals/I&O/Wt Last Vital Signs Temp 98.0 F 10/28/21 21:33 Pulse 97 10/28/21 21:33 Resp 18 10/28/21 21:33 BP 131/101 10/28/21 21:33 Pulse Ox 98 10/28/21 21:33 Data NPU : 10/23/21 16:53 10/23/21 16:53 A&P Additional A&P Information (1) Suicidal ideation: (2) Schizoaffective disorder: (3) Borderline intellectual functioning: Additional A&P Information This is a 41-year-old white female with a long history of mental health issues, cognitive impairment and limited social functioning reporting suicidal thoughts and some nonadherence with medication. 1. Continue current medication. 2. Continue every 15 minute checks for safety. 3. Encourage individual, group and milieu therapies. 4. Reconnected with [facility] [place] outpatient services to see if they will still work with her to assist her in her outpatient recovery and overall treatment. 5. Discharge in the morning. Involuntary Hold Information 96 Hour Hold: 96 Hour Involuntary Admission: No Attestations NPU Medical Necessity Statement*: Inpatient hospitalization is medically necessary and the clinically appropriate intervention at this time. We will monitor medications and make changes as indicated. Likely length of stay 1-2 days. Coding Level of Care Code Acute Hog Feeder for Mariel Marcelino
[2021-10-28 21:33] VITALS: BP 131/101; PULSE 97; RESP 18; TEMP 36.7; O2SAT 98
[2021-10-28] MEDS: atorvastatin 40 mg Tablet 20 MG PO (21:47)
[2021-10-28] MEDS: mupirocin oint 22 gm 1 APPLIC TOPICAL (21:48)
[2021-10-29 06:00] VITALS: RESP 16
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
[2021-10-29] MEDS: fluoxetine 20 mg Capsule 40 MG PO (08:03)
[2021-10-29] MEDS: spironolactone 25 mg Tablet 100 MG PO (08:03)
[2021-10-29] MEDS: topiramate 100 mg Tablet 200 MG PO (08:04)
--- NOTE | 2021-10-29 13:10 | NPU.GN ---
[facility] Group Topic: Beti Villagomez General Mood of Group: Sonia did not attend group as she was waiting to be discharged. This technical writer did meet with her and aided her in completing the [facility] new person paperwork.
== END 2021-10-29 14:11 | disposition home or self-care (01) | DRG 885 ==
LOC: ER 18:21 → NP 10-24 14:56
PROVIDERS: Admitting Provider Psychiatry & Neurology Psychiatry; Emergency Provider Emergency Medicine; Visit Provider Psychiatry & Neurology Psychiatry
DX: F25.9 Schizoaffective disorder, unspecified (principal); R45.851 Suicidal ideations; Z68.43 Body mass index [BMI] 50.0-59.9, adult; R41.83 Borderline intellectual functioning; E78.00 Pure hypercholesterolemia, unspecified; F17.210 Nicotine dependence, cigarettes, uncomplicated; E66.01 Morbid (severe) obesity due to excess calories; L68.0 Hirsutism; Z91.14 Patient's other noncompliance with medication regimen; Z91.51 Personal history of suicidal behavior; Z59.9 Problem related to housing and economic circumstances, unspecified; Z63.0 Problems in relationship with spouse or partner; Z79.01 Long term (current) use of anticoagulants
CPT/HCPCS: 80053; 80306; 80307; 81025; 85025; 93005; 97150; 97165; 99285

== ENCOUNTER → 2022-05-15 12:33 | Outpatient (BNVA) | payer MEDICAID, SELFPAY | PROVIDERS: Visit Provider Registered Nurse | DX: Z79.899 Other long term (current) drug therapy (principal) | CPT/HCPCS: 80053; 80061; 82306; 83036; 84443; 85025 ==

== ENCOUNTER 2022-10-02 12:28 | Emergency (ER) | payer MEDICAID, SELFPAY ==
[2022-10-02 12:34] VITALS: BP 117/85; PULSE 94; RESP 16; TEMP 36.5; O2SAT 94
--- NOTE | 2022-10-02 12:34 | ED.C_ITS ---
HPI - Psych General: Chief Complaint: Psychiatric Symptoms Stated Complaint: SI Time Seen by Provider: 10/02/22 12:33 History of Present Illness: Ms. Monzon is a 42-year-old lady with significant past medical history of schizoaffective disorder and borderline intellectual functioning presenting to the emergency department for mental health exam. She reports longstanding history of auditory hallucinations however these have perhaps been worse lately. Denies command hallucinations, suicidal, homicidal ideation. Presented for evaluation because she was screaming and 911 was is called. Has missed few doses of medication. Denies injuries. No other specific changes in health, exacerbating, or alleviating factors identified. Onset (ago): day(s) History of same: Yes Associated psychiatric symptoms: auditory hallucinations Review of Systems General: Reports: 10 or more systems reviewed and unremarkable except in HPI and below PFSH ED PFSH: Medical History Insomnia MDD (major depressive disorder), recurrent, severe, with psychosis Nicotine dependence with current use Non compliance w medication regimen Parent-child relational problem Psychiatric care Schizoaffective disorder Social History Smoking and tobacco status: current every day smoker Current gender identity: Female Female Reproductive History: Date of last menstrual period: 09/16/21 Physical Exam Const: COMMON NORMALS: alert GENERAL APPEARANCE: cooperative, well kempt and well developed HENMT: COMMON NORMALS: normocephalic and atraumatic HEAD & SCALP: normocephalic and atraumatic THROAT: posterior oropharynx normal Eye: COMMON NORMALS: conjunctivae normal CONJUNCTIVA: Yes conjunctivae normal SCLERA: sclerae normal Neck/C-Spine: COMMON NORMALS: supple GENERAL: Yes trachea midline Resp: COMMON NORMALS: normal respiratory effort and clear to auscultation bilaterally EFFORT & INSPECTION: Yes able to speak in complete sentences AUSCULTATION: clear to auscultation bilaterally Cardio: COMMON NORMALS: regular rate and regular rhythm RATE: regular rate RHYTHM: regular rhythm GI: COMMON NORMALS: Soft to palpation PALPATION: Yes Soft to palpation and No Tenderness to palpation present (GI) Extremity: GENERAL: Yes normal exam except as noted and No edema Neuro: COMMON NORMALS: moves all extremities SENSORIUM/ORIENTATION: Yes alert and No Orientation impaired Psych: COMMON NORMALS: mental status grossly normal, Normal thought process present and speech normal APPEARANCE: Yes well kempt ATTITUDE: Yes calm SPEECH: Yes normal speech MOOD & AFFECT: Yes euthymic mood THOUGHT PROCESS: Normal thought process present THOUGHT CONTENT: No Suicidality present and No Homicidality present Course Vital Signs: Vital signs: Vital Signs Temperature 97.7 F 10/02/22 12:34 Pulse Rate 87 10/02/22 15:39 Respiratory Rate 16 10/02/22 15:39 Blood Pressure 179/66 10/02/22 15:39 Pulse Oximetry 94 10/02/22 15:39 Oxygen Delivery Me thod 10/02/22 12:34 MDM - Psych Medical Decision Making 42-year-old lady presenting to the emergency department for mental health exam. She has a longstanding history of hallucinations and EMS was called because she was screaming. She is currently calm and cooperative. She denies suicidal or homicidal ideation. She does not wish to be admitted. Patient was evaluated by the psychiatry service and satisfactory for continued outpatient management. The results of ED evaluation were discussed with the patient including prescriptions and/or symptomatic cares (if applicable) including appropriate and responsible use, followup plan, and return precautions. The patient verbalized understanding and felt safe for discharge. Medical Records I reviewed the patient's medical records. Lab Data I reviewed the patient's lab results. Discharge Plan Discharge Patient Disposition: Home Clinical Impression: Encounter for screening examination for mental health and behavioral disorders Condition: Stable Prescriptions: No Action mupirocin 2 % ointment 1 applic topical BID Qty: 22 0RF paliperidone palmitate 234 mg/1.5 mL syringe 234 mg IM .every 4 weeks Qty: 1.5 2RF Rx Instructions: May fill 08/05/22 paliperidone [Invega] 1.5 mg tablet extended release 24hr 1.5 mg PO QAM PRN (Reason: psychosis) Qty: 30 0RF trazodone 100 mg tablet See Rx Instructions .ROUTE .COMPLEX Qty: 30 1RF Dose Instruction: TAKE ONE TABLET DAILY AT BEDTIME NEEDED FOR SLEEP Rx Instructions: TAKE ONE TABLET DAILY AT BEDTIME NEEDED FOR SLEEP nicotine 21 mg/24 hr patch 24 hour 1 patch transdermal DAILY Qty: 28 0RF Excedrin Migraine 250-250-65 mg Tablet 2 tab PO Q6H PRN (Reason: Migraine Headache) Eliquis 5 mg tablet 5 mg PO .SEE COMMENTS Rx Instructions: PT STATES SHE IS STILL TAKING-RX FILLED LAST ON 03/11/21 30D/S PT STATES SHE HAD A BUILD UP AND IS STILL TAKING-FAMILY PHARMACY STATES LAST FILLED 03/11/21 30D/S AND STATES HAS RX ON HOLD FROM FEBRUARY 03 spironolactone 100 mg tablet 100 mg PO BID fenofibrate micronized 200 mg capsule 200 mg PO BEDTIME simvastatin 40 mg tablet 40 mg PO BEDTIME topiramate 100 mg tablet 200 mg PO BID Discharge Orders: Discharge ED (Routine); Ordered 10/02/22 Ordered By: Aniket Carter Discharge Diet: Usual diet Discharge Activity: Increase activity as tolerated Patient Instructions: Psychiatric Hallucinations (ED) Activity Restrictions/Additional Instructions: Thank you for visiting the emergency department. You were seen and evaluated for mental health exam. After evaluation by ED physician and psychiatry it is reasonable to continue outpatient management. Please follow-up with your psychiatric care provider in the next few days. Please also continue your current medication regimen. Return to the emergency department for anything else that you are concerned about and feel needs emergency department evaluation. 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
[2022-10-02 15:39] VITALS: BP 179/66; PULSE 87; RESP 16; O2SAT 94
== END 2022-10-02 15:43 | disposition home or self-care (01) ==
PROVIDERS: Emergency Provider Emergency Medicine
DX: Z00.8 Encounter for other general examination (principal)
CPT/HCPCS: 99283

== ENCOUNTER 2023-07-08 20:07 | Emergency (ER) | payer MEDICAID, SELFPAY ==
[2023-07-08 20:16] VITALS: BP 131/58; PULSE 87; RESP 18; TEMP 36.8; O2SAT 94
[2023-07-08 21:34] LABS: Basophils % 0.3 %; Eosinophils # 0.2 10^3/uL (0.0-0.8); Eosinophils % 1.9 %; Hematocrit 42.4 % (36-47); Lymphocytes # 2.6 10^3/uL (0.8-4.8); Lymphocytes % 26.8 %; Mean Corpuscular HGB Conc 32.5 g/dL (30-55); Mean Corpuscular Hemoglobin 30.9 pg (27-33); Mean Corpuscular Volume 94.9 fl (85-98); Mean Platelet Volume 9.4 fL (7.4-10.4); Monocytes # 0.7 10^3/uL (0.2-0.9); Monocytes % 7.6 %; Neutrophils # 5.99 10^3/uL (1.8-7.7); Neutrophils % 63.1 %; Nucleated Red Blood Cells % 0 %; Platelet Count 320 10^3/cmm (157-399); Red Blood Count 4.47 10^6/uL (3.85-5.65); Red Cell Distribution Width 13.5 % (12.1-15.1)
[2023-07-08 21:44] LABS: HCG, Serum Qual Negative (Negative)
[2023-07-08 22:06] LABS: Alanine Aminotransferase 19 U/L (0-33); Albumin Level 4.3 g/dL (3.5-5.2); Alkaline Phosphatase 96 U/L (35-105); Anion Gap 13.2 (5-19); Aspartate Amino Transferase 18 U/L (0-32); Blood Urea Nitrogen 11 mg/dL (6-20); Calcium 9.5 mg/dL (8.5-10.5); Carbon Dioxide 27 mmol/L (22-29); Chloride 107 mmol/L (98-107); Globulin 2.8 g/dL (1.3-4.6); Glomerular Filtration Rate 90.9 mL/min (90-130); Glucose 123 mg/dL (65-115); Lipase 26 U/L (13-60); Osmolality Calculated 297 mOsm/kg (285-295); Potassium 4.2 mmol/L (3.5-5.1); Sodium 143 mmol/L (136-145); Total Bilirubin 0.2 mg/dL (0.15-1.2); Total Protein 7.1 g/dL (6.6-8.7)
--- NOTE | 2023-07-09 00:23 | ED_ITS ---
HPI - Abdominal Pain General: Chief Complaint: Abdominal Pain Stated Complaint: LRQ abd pain Time Seen by Provider: 07/09/23 00:23 History of Present Illness: 43-year-old female comes in today with complaints of right lower quadrant abdominal pain on and off for 2 weeks. Patient appears nontoxic. Patient reports no previous surgeries. Patient is morbidly obese. Patient has a hi story of schizophrenia, DVT, high cholesterol. Patient reports no changes in bowel habits. Patient reports no vomiting. Patient denies any fever. Associated Symptoms: Denies chills, constipation, diarrhea, fever(s), nausea and vomiting Review of Systems General: Reports: 10 or more systems reviewed and unremarkable except in HPI and below Const: Denies: fever(s) or chills Card: Denies: chest pain Resp: Denies: dyspnea GI: Reports: abdominal pain (Right lower quadrant); Denies: nausea, vomiting, diarrhea or constipation [facility] ED PFSH: Medical History Insomnia MDD (major depressive disorder), recurrent, severe, with psychosis Nicotine dependence with current use Non compliance w medication regimen Parent-child relational problem Psychiatric care Schizoaffective disorder Social History Smoking and tobacco status: current every day smoker Current gender identity: Female Physical Exam Const: COMMON NORMALS: alert HENMT: COMMON NORMALS: normocephalic HEAD & SCALP: normocephalic Neck/C-Spine: COMMON NORMALS: full ROM Resp: COMMON NORMALS: normal respiratory effort Cardio: COMMON NORMALS: regular rate and regular rhythm RATE: regular rate RHYTHM: regular rhythm GI: COMMON NORMALS: Soft to palpation AUSCULTATION: Yes normoactive bowel sounds PALPATION: Yes Soft to palpation, Yes Tenderness to palpation present (GI) Details: RLQ, No Guarding due to palpation present (GI) and No Rigid due to palpation : COMMON NORMALS: Yes no CVA tenderness BLADDER/KIDNEY EXAM: Yes no CVA tenderness Back/Pelvis: COMMON NORMALS: no CVA tenderness Extremity: COMMON NORMALS: normal to inspection Neuro: SENSORIUM/ORIENTATION: Yes alert Skin: COMMON NORMALS: turgor normal GENERAL SKIN EXAM: turgor normal Course Vital Signs: Vital signs: Vital Signs Temperature 98.2 F 07/08/23 20:16 Pulse Rate 87 07/08/23 20:16 Respiratory Rate 18 07/08/23 20:16 Blood Pressure 131/58 07/08/23 20:16 Pulse Oximetry 94 07/08/23 20:16 Oxygen Delivery Me thod Room Air 07/08/23 20:16 MDM - Abdominal Pain Medical Decision Making 43-year-old female comes in today with complaints of right lower abdominal pain. On exam abdomen soft and nontender to palpation. No rebound tenderness or guarding is noted. Patient appears nontoxic. Vital signs are normal. Differential diagnosis includes but not limited to constipation, appendicitis, gallbladder disease, muscle strain, hernia. CBC and CMP were unremarkable. Vital signs were normal. No signs of severe illness was noted. KUB and chest x-ray were normal. Patient did have some crackles in the lung pizarro but x-ray noted no pneumonia and most likely is just adventitious sounds secondary to cigarette smoking. Patient was recommended to follow-up with primary care for further evaluation and referral to gastroenterology for persistent pain. Patient may need to have endoscopy or further work-up if pain persists. Lab Data 07/08/23 21:22 07/08/23 21:22 Labs/Radiology: Radiology Impressions KUB X-Ray 07/09/23 00:24 IMPRESSION: No acute findings. Chest X-Ray 07/09/23 00:30 IMPRESSION: Asymmetric left basal opacities concerning for pneumonia. Recommend radiographic follow-up imaging in 6-8 weeks to document resolution. ADDENDUM: 07/09/23 0115 On same day abdominal radiograph, the lung bases are clear. Asymmetric left basilar opacity seen on frontal chest radiograph is likely artifactual related to asymmetric breast soft tissue superimposition and patient rotation. Findings were discussed with BERRY DALEY at 07/09/2023 1:14 AM CDT. Laboratory Results WBC 9.50 10^3/uL (3.29-11.43) 07/08/23 21: RBC 4.47 10^6/uL (3.85-5.65) 07/08/23 21:22 Hgb 13.80 g/dL (11.27-16.99) 07/08/23 21: Hct 42.4 % (36-47) 07/08/23 21: MCV 94.9 fl (85-98) 07/08/23 21: MCH 30.9 pg (27-33) 07/08/23 21: MCHC 32.5 g/dL (30-55) 07/08/23 21: RDW 13.5 % (12.1-15.1) 07/08/23 21: Plt Count 320 10^3/cmm (157-399) 07/08/23 21: MPV 9.4 fL (7.4-10.4) 07/08/23 21: Neut % (Auto) 63.1 % 07/08/23 21: Lymph % (Auto) 26.8 % 07/08/23 21: [place] % (Auto) 7.6 % 07/08/23 21: Eos % (Auto) 1.9 % 07/08/23 21: Baso % (Auto) 0.3 % 07/08/23 21: Neut # (Auto) 5.99 10^3/uL (1.8-7.7) 07/08/23 21: Lymph # (Auto) 2.6 10^3/uL (0.8-4.8) 07/08/23 21: [place] # (Auto) 0.7 10^3/uL (0.2-0.9) 07/08/23 21: Eos # (Auto) 0.2 10^3/uL (0.0-0.8) 07/08/23 21: Baso # (Auto) 0.0 10^3/uL (0.0-0.1) 07/08/23 21: Nucleated RBC % (auto) 0 % 07/08/23 21: Nucleated RBCs # 0.0 /100WBC 07/08/23 21: Sodium 143 mmol/L (136-145) 07/08/23 21: Potassium 4.2 mmol/L (3.5-5.1) 07/08/23 21: Chloride 107 mmol/L (98-107) 07/08/23 21: Carbon Dioxide 27 mmol/L (22-29) 07/08/23 21: Anion Gap 13.2 (5-19) 07/08/23 21: BUN 11 mg/dL (6-20) 07/08/23 21: Creatinine 0.7 mg/dL (0.5-0.9) 07/08/23 21: GFR Calculation 90.9 mL/min (90-130) 07/08/23 21: Glucose 123 mg/dL (65-115) H 07/08/23 21:22 Calculated Osmolality 297 mOsm/kg (285-295) H 07/08/23 21:22 Calcium 9.5 mg/dL (8.5-10.5) 07/08/23 21:22 Total Bilirubin 0.2 mg/dL (0.15-1.2) 07/08/23 21:22 AST 18 U/L (0-32) 07/08/23 21: ALT 19 U/L (0-33) 07/08/23 21: Alkaline Phosphatase 96 U/L (35-105) 07/08/23 21:22 Total Protein 7.1 g/dL (6.6-8.7) 07/08/23 21: Albumin 4.3 g/dL (3.5-5.2) 07/08/23 21: Globulin 2.8 g/dL (1.3-4.6) 07/08/23 21:22 Lipase 26 U/L (13-60) 07/08/23 21:22 HCG, Qual Negative (Negative) 07/08/23 21: Urine Color Yellow (Yellow) 07/09/23 01:00 Urine Appearance Hazy (CLEAR) A 07/09/23 01:00 Urine pH 5 (5-7) 07/09/23 01:00 Ur Specific [place] 1.030 (1.005-1.030) 07/09/23 01:00 Urine Protein Trace (Negative) 07/09/23 01:00 Urine Glucose (UA) Norm (Normal) 07/09/23 01:00 Urine Ketones 1+ (Negative) H 07/09/23 01:00 Urine Blood 2+ (Negative) H 07/09/23 01:00 Urine Nitrate Negative (Negative) 07/09/23 01:00 Urine Bilirubin 1+ (Negative) H 07/09/23 01:00 Urine Urobilinogen 1 mg/dL (Negative) H 07/09/23 01:00 Ur Leukocyte Esterase Negative (Negative) 07/09/23 01:00 Urine RBC 5-10 /hpf (0-2) H 07/09/23 01:00 Urine WBC None /hpf (0-5) 07/09/23 01:00 Ur Squamous Epith Cells 10-15 /hpf (0-5) H 07/09/23 01:00 Calcium Oxalate Crystal 5-10 /hpf H 07/09/23 01:00 Amorphous Sediment Not Reportable 07/09/23 01:00 Urine Bacteria 2+ /hpf (NONE) H 07/09/23 01:00 Urine Mucus 2+ /hpf 07/09/23 01:00 Discharge Plan Discharge Patient Disposition: Home Clinical Impression: Abdominal pain Qualifiers: Abdominal location: right lower quadrant Qualified Code(s): R10.31 - Right lower quadrant pain Condition: Stable Prescriptions: No Action mupirocin 2 % ointment 1 applic topical BID Qty: 22 0RF paliperidone palmitate 234 mg/1.5 mL syringe 234 mg IM .every 4 weeks Qty: 1.5 2RF Rx Instructions: May fill 08/05/22 paliperidone [Invega] 1.5 mg tablet extended release 24hr 1.5 mg PO QAM PRN (Reason: psychosis) Qty: 30 0RF trazodone 100 mg tablet See Rx Instructions .ROUTE .COMPLEX Qty: 30 1RF Dose Instruction: TAKE ONE TABLET DAILY AT BEDTIME NEEDED FOR SLEEP Rx Instructions: TAKE ONE TABLET DAILY AT BEDTIME NEEDED FOR SLEEP nicotine 21 mg/24 hr patch 24 hour 1 patch transdermal DAILY Qty: 28 0RF Excedrin Migraine 250-250-65 mg Tablet 2 tab PO Q6H PRN (Reason: Migraine Headache) Eliquis 5 mg tablet 5 mg PO .SEE COMMENTS Rx Instructions: PT STATES SHE IS STILL TAKING-RX FILLED LAST ON 03/11/21 30D/S PT STATES SHE HAD A BUILD UP AND IS STILL TAKING-FAMILY PHARMACY STATES LAST FILLED 03/11/21 30D/S AND STATES HAS RX ON HOLD FROM FEBRUARY 03 spironolactone 100 mg tablet 100 mg PO BID fenofibrate micronized 200 mg capsule 200 mg PO BEDTIME simvastatin 40 mg tablet 40 mg PO BEDTIME topiramate 100 mg tablet 200 mg PO BID Discharge Orders: Discharge ED (Routine); Ordered 07/09/23 Ordered By: Berry Purcell Discharge Diet: Usual diet Discharge Activity: Increase activity as tolerated Patient Instructions: Abdominal Pain (ED) Activity Restrictions/Additional Instructions: Home and rest. Drink plenty of water and fluids. Activity as tolerated. Use acetaminophen and/or ibuprofen for pain. Follow-up with primary care for persistent symptoms. Return to ED for worsening symptoms such as high fever greater than 100.4, nausea and vomiting and inability to hold fluids down, blood in vomit or stool, severe chest pain, or shortness of breath. Coding Level of Care Code ED [employer]rait [employer] Photographer for Mariel Marcelino
--- NOTE | 2023-07-09 00:24 | XRR_ITS ---
PROCEDURE INFORMATION: Exam: XR Abdomen Exam date and time: 07/09/2023 12:32 AM Age: 43 years old Clinical indication: Abdominal pain; Localized; Patient HX: C/O lower abd pain TECHNIQUE: Imaging protocol: Radiologic exam of the abdomen. Views: Frontal supine view of the abdomen. 1 View. COMPARISON: No relevant prior studies available. FINDINGS: Gastrointestinal tract: Unremarkable. No bowel dilation. Bones/joints: No acute osseous abnormality. XR/XR KUB [id number] IMPRESSION: No acute findings.
--- NOTE | 2023-07-09 00:30 | XRR_ITS ---
PROCEDURE INFORMATION: Exam: XR Chest Exam date and time: 07/09/2023 12:41 AM Age: 43 years old Clinical indication: Cough; Additional info: Cough, right lung crackles TECHNIQUE: Imaging protocol: Radiologic exam of the chest. Views: 1 view. COMPARISON: CR (ABDOMEN, ) 07/09/2023 12:32 AM FINDINGS: Lungs: Moderate lung expansion. Asymmetric left basal opacities. Pleural spaces: No pleural effusion. No pneumothorax. Heart/Mediastinum: Normal cardiomediastinal silhouette. Bones/joints: No acute osseous abnormality. XR/XR chest 1V portable [id number] IMPRESSION: Asymmetric left basal opacities concerning for pneumonia. Recommend radiographic follow-up imaging in 6-8 weeks to document resolution.
[2023-07-09 01:21] LABS: Blood Urine 2+ (Negative); Glucose Urine UA Norm (Normal); Ketones Urine 1+ (Negative); Protein Urine Trace (Negative); Urine Appearance Hazy (CLEAR); Urine Color Yellow (Yellow); pH Urine 5 (5-7)
[2023-07-09 01:22] LABS: Add Urine Culture? No; Add Urine Microscopic? YES; Bacteria Urine 2+ /hpf; Bilirubin Urine 1+ (Negative); Leukocyte Esterase Urine Negative (Negative); Mucus Urine 2+ /hpf; Nitrate Urine Negative (Negative); Urobilinogen Urine 1 mg/dL (Negative)
[2023-07-09] MEDS: HYDROcodone-acetaminophen 5-325 mg Tablet 1 TAB PO (02:18)
[2023-07-09] MEDS: ondansetron 4 MG Tablet PO (02:19)
== END 2023-07-09 02:22 | disposition home or self-care (01) ==
PROVIDERS: Emergency Medicine; Emergency Provider Nurse Practitioner Family
DX: R10.31 Right lower quadrant pain (principal); F17.210 Nicotine dependence, cigarettes, uncomplicated
CPT/HCPCS: 36415; 71045; 74018; 80053; 81001; 83690; 84703; 85025; 99284; Q0162

== ENCOUNTER 2024-06-08 09:09 | Inpatient (IN) | payer MEDICAID, SELFPAY ==
[2024-06-08 09:09] VITALS: BP 122/77; PULSE 111; RESP 16; TEMP 36.4; O2SAT 93; BMI 58.7
--- NOTE | 2024-06-08 09:24 | ED.C_ITS ---
HPI - Psych 2 General: Chief Complaint: Psychiatric Symptoms Stated Complaint: si Time Seen by Provider: 06/08/24 09:15 History of Present Illness: 44-year-old female with a history of dep ression, history of DVT but she is no longer on Eliquis, tobacco dependence, and schizoaffective disorder who presents to the emergency room with worsening depression and suicidal thoughts. She has no specific plan. She stopped taking her medicines a while back because she did not think they were working. No self-harm thus far. Review of Systems 2 Narrative: Constitutional symptoms: Negative except as documented in HPI. Skin symptoms: Negative except as documented in HPI. Eye symptoms: Negative except as documented in HPI. ENMT symptoms: Negative except as documented in HPI. Respiratory symptoms: Negative except as documented in HPI. Cardiovascular symptoms: Negative except as documented in HPI. Gastrointestinal symptoms: Negative except as documented in HPI. Genitourinary symptoms: Negative except as documented in HPI. Musculoskeletal symptoms: Negative except as documented in HPI. Neurologic symptoms: Negative except as documented in HPI. Psychiatric symptoms: Negative except as documented in HPI. Endocrine symptoms: Negative except as documented in HPI. PFSH ED 2 PFSH: Medical History (Updated 06/08/24 @ 11:47 by Kerry Zavala MD) Insomnia Non compliance w medication regimen Nicotine dependence with current use Parent-child relational problem Schizoaffective disorder MDD (major depressive disorder), recurrent, severe, with psychosis Social History Smoking and tobacco/nicotine status: current every day tobacco/nicotine user Current gender identity: Female Physical Exam 2 Narrative: EXAM NARRATIVE: General: Alert. no acute distress Skin: Warm, dry Head: Normocephalic, atraumatic. Neck: Supple, trachea midline. Eye: Extraocular movements are intact. Ears, nose, mouth and throat: Oral mucosa moist. Cardiovascular: Regular rate and rhythm, Normal peripheral perfusion. Respiratory: Lungs are clear to auscultation, respirations are non-labored, breath sounds are equal, Symmetrical chest wall expansion. Gastrointestinal: Soft, Nontender, Non distended, Normal bowel sounds. Musculoskeletal: Normal ROM, no deformity. Neurological: Alert and oriented to person, place, time, and situation, No focal neurological deficit observed. Psychiatric: Cooperative, depressed, expresses suicidal ideation. Course 2 Vital Signs: Vital signs: Vital Signs Temperature 98.4 F 06/08/24 10:25 Pulse Rate 88 06/08/24 10:25 Respiratory Rate 16 06/08/24 10:26 Blood Pressure 122/77 06/08/24 10:26 Pulse Oximetry 93 06/08/24 10:26 Oxygen Delivery Me thod Room Air 06/08/24 10:26 MDM - Psych Medical Decision Making Differential diagnosis: Patient with reported depression and suicidal ideation. concerns for infection, alcohol intoxication, cardiac issues or other medical problems prior to psychiatric admission. Workup: labwork, ekg ordered to evaluate the pathologies and to clear the patient medically prior to psychiatric admission Lab Review: Laboratory results were reviewed and interpreted by myself the emergency room physician. Lab review: - Medically cleared. - EKG shows no ischemic changes. - Blood alcohol level is negative, -Tylenol and salicylate levels are negative. - Drug screen is negative - No signs of infection, urinalysis clear and white count is not elevated - No anemia. - BUN and creatinine are within normal limits. Consultation: I spoke with Dr. Monzon who is on-call for psychiatry and accepts the patient to the Neuropsych Unit. Assessment and plan: Depression Suicidal ideation Medical noncompliance -Admission to neuropsychiatric unit for continued evaluation and treatment. - All lab work was reviewed and interpreted personally by myself, the ER physician - Evaluation and treatment of this problem were appropriate in the emergency setting Lab Data 06/08/24 10:00 06/08/24 10:00 Laboratory Results WBC 9.75 10^3/uL (3.29-11.43) 06/08/24 10:00 RBC 4.67 10^6/uL (3.85-5.65) 06/08/24 10:00 Hgb 14.50 g/dL (11.27-16.99) 06/08/24 10:00 Hct 44.4 % (36-47) 06/08/24 10:00 MCV 95.1 fl (85-98) 06/08/24 10:00 MCH 31.0 pg (27-33) 06/08/24 10:00 MCHC 32.7 g/dL (30-55) 06/08/24 10:00 RDW 13.2 % (12.1-15.1) 06/08/24 10:00 Plt Count 378 10^3/cmm (157-399) 06/08/24 10:00 MPV 9.1 fL (7.4-10.4) 06/08/24 10:00 Neut % (Auto) 71.2 % 06/08/24 10:00 Lymph % (Auto) 19.8 % 06/08/24 10:00 [place] % (Auto) 7.1 % 06/08/24 10:00 Eos % (Auto) 1.1 % 06/08/24 10:00 Baso % (Auto) 0.4 % 06/08/24 10:00 Neut # (Auto) 6.94 10^3/uL (1.8-7.7) 06/08/24 10:00 Lymph # (Auto) 1.9 10^3/uL (0.8-4.8) 06/08/24 10:00 [place] # (Auto) 0.7 10^3/uL (0.2-0.9) 06/08/24 10:00 Eos # (Auto) 0.1 10^3/uL (0.0-0.8) 06/08/24 10:00 Baso # (Auto) 0.0 10^3/uL (0.0-0.1) 06/08/24 10:00 Nucleated RBC % (auto) 0 % 06/08/24 10:00 Nucleated RBCs # 0.0 /100WBC 06/08/24 10:00 Sodium 140 mmol/L (136-145) 06/08/24 10:00 Potassium 4.6 mmol/L (3.5-5.1) 06/08/24 10:00 Chloride 105 mmol/L (98-107) 06/08/24 10:00 Carbon Dioxide 26 mmol/L (22-29) 06/08/24 10:00 Anion Gap 13.6 (5-19) 06/08/24 10:00 BUN 9 mg/dL (6-20) 06/08/24 10:00 Creatinine 0.8 mg/dL (0.5-0.9) 06/08/24 10:00 GFR Calculation 77.6 mL/min (90-130) L 06/08/24 10:00 Glucose 115 mg/dL (65-115) 06/08/24 10:00 Calculated Osmolality 290 mOsm/kg (285-295) 06/08/24 10:00 Calcium 8.9 mg/dL (8.5-10.5) 06/08/24 10:00 Total Bilirubin 0.2 mg/dL (0.15-1.2) 06/08/24 10:00 AST 12 U/L (0-32) 06/08/24 10:00 ALT 25 U/L (0-33) 06/08/24 10:00 Alkaline Phosphatase 86 U/L (35-105) 06/08/24 10:00 Total Protein 7.0 g/dL (6.6-8.7) 06/08/24 10:00 Albumin 3.8 g/dL (3.5-5.2) 06/08/24 10:00 Globulin 3.2 g/dL (1.3-4.6) 06/08/24 10:00 TSH 1.06 uIU/mL (0.27-4.20) 06/08/24 10:00 HCG, Qual Negative (Negative) 06/08/24 09:35 Urine Color Yellow (Yellow) 06/08/24 09:35 Urine Appearance Slightly cloudy (CLEAR) 06/08/24 09:35 Urine pH 5 (5-7) 06/08/24 09:35 Ur Specific [place] 1.025 (1.005-1.030) 06/08/24 09:35 Urine Protein Neg (Negative) 06/08/24 09:35 Urine Glucose (UA) Norm (Normal) 06/08/24 09:35 Urine Ketones Negative (Negative) 06/08/24 09:35 Urine Blood 2+ (Negative) H 06/08/24 09:35 Urine Nitrate Negative (Negative) 06/08/24 09:35 Urine Bilirubin Neg (Negative) 06/08/24 09:35 Urine Urobilinogen Norm mg/dL (Negative) 06/08/24 09:35 Ur Leukocyte Esterase Negative (Negative) 06/08/24 09:35 Urine RBC 0-4 /hpf (0-2) H 06/08/24 09:35 Urine WBC 0-4 /hpf (0-5) H 06/08/24 09:35 Ur Squamous Epith Cells 5-10 /hpf (0-5) H 06/08/24 09:35 Ur Transition Epith Cell 0-4 /hpf 06/08/24 09:35 Amorphous Sediment Not Reportable 06/08/24 09:35 Urine Bacteria 1+ /hpf (NONE) H 06/08/24 09:35 Urine Mucus 2+ /hpf 06/08/24 09:35 Salicylates < 0.3 mg/dL (3-10) L 06/08/24 10:00 Urine Opiates Screen Negative ng/mL (Negative) 06/08/24 09:35 Acetaminophen < 5.0 ug/mL (10-30) L 06/08/24 10:00 Ur Barbiturates Screen Negative ng/mL (Negative) 06/08/24 09:35 Ur Phencyclidine Scrn Negative ng/mL (Negative) 06/08/24 09:35 Ur Amphetamines Screen Negative ng/mL (Negative) 06/08/24 09:35 U Benzodiazepines Scrn Negative ng/mL (Negative) 06/08/24 09:35 Urine Cocaine Screen Negative ng/mL (Negative) 06/08/24 09:35 U Marijuana (THC) Screen Negative ng/mL (Negative) 06/08/24 09:35 Ethyl Alcohol < 10 mg/dL (0-10) 06/08/24 10:00 No radiology studies performed this visit Discharge Plan Discharge Patient Disposition: Admitted As Inpatient Admit Provider: Naldo Monzon Clinical Impression: Depression, Schizoaffective disorder, Suicidal ideation, Medically noncompliant Condition: Stable Coding Level of Care Code ED Coiled Tubing Supervisor for Mariel Marcelino
--- NOTE | 2024-06-08 09:36 | ECG_ITS ---
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 Measurements Intervals [place] Rate: 99 P: -61 SD: 111 QRS: 185 QRSD: 79 T: 113 QT: 321 QTc: 413 Interpretive Statements SINUS RHYTHM POSSIBLE RIGHT VENTRICULAR HYPERTROPHY [SOME/ALL OF: PROMINENT R IN V1, LATE TRANSITION, RAD, LEANNA, SSS] Electronically Signed On 06-08-2024 10:31:00 CDT by Jim Neves M.D. [email or web address]
[2024-06-08 10:02] LABS: Bilirubin Urine Neg (Negative); Blood Urine 2+ (Negative); Glucose Urine UA Norm (Normal); Ketones Urine Negative (Negative); Leukocyte Esterase Urine Negative (Negative); Nitrate Urine Negative (Negative); Protein Urine Neg (Negative); Specific Gravity, Urine 1.025 (1.005-1.030); Urine Appearance Slightly Cloudy (CLEAR); Urine Color Yellow (Yellow); Urobilinogen Urine Norm (Negative); pH Urine 5 (5-7)
[2024-06-08 10:04] LABS: Add Urine Culture? No; Bacteria Urine 1+ /hpf; Mucus Urine 2+ /hpf; RBC Urine 0-4 /hpf (0-2); Transitional Epi Cells Urine 0-4 /hpf; WBC Urine 0-4 /hpf (0-5)
[2024-06-08 10:08] LABS: Amphetamines Screen Urine Negative (Negative); Barbiturates Screen Urine Negative (Negative); Benzodiazepines Screen Urine Negative (Negative); Cocaine Screen Urine Negative (Negative); Opiate Screen Urine Negative (Negative); PCP Screen Urine Negative (Negative); THC Screen Urine Negative (Negative)
[2024-06-08 10:10] LABS: Basophils % 0.4 %; Eosinophils # 0.1 10^3/uL (0.0-0.8); Eosinophils % 1.1 %; Hematocrit 44.4 % (36-47); Lymphocytes # 1.9 10^3/uL (0.8-4.8); Lymphocytes % 19.8 %; Mean Corpuscular HGB Conc 32.7 g/dL (30-55); Mean Corpuscular Volume 95.1 fl (85-98); Mean Platelet Volume 9.1 fL (7.4-10.4); Monocytes # 0.7 10^3/uL (0.2-0.9); Monocytes % 7.1 %; Neutrophils # 6.94 10^3/uL (1.8-7.7); Neutrophils % 71.2 %; Nucleated Red Blood Cells % 0 %; Platelet Count 378 10^3/cmm (157-399); Red Blood Count 4.67 10^6/uL (3.85-5.65); Red Cell Distribution Width 13.2 % (12.1-15.1); White Blood Count 9.75 10^3/uL (3.29-11.43)
[2024-06-08 10:25] VITALS: BP 136/90; PULSE 88; RESP 20; TEMP 36.9; O2SAT 94
[2024-06-08 10:26] VITALS: BP 122/77; RESP 16; O2SAT 93
[2024-06-08 10:38] LABS: HCG Qualitative Urine. Negative (Negative)
[2024-06-08 10:39] LABS: Alanine Aminotransferase 25 U/L (0-33); Albumin Level 3.8 g/dL (3.5-5.2); Alkaline Phosphatase 86 U/L (35-105); Anion Gap 13.6 (5-19); Aspartate Amino Transferase 12 U/L (0-32); Blood Urea Nitrogen 9 mg/dL (6-20); Calcium 8.9 mg/dL (8.5-10.5); Carbon Dioxide 26 mmol/L (22-29); Chloride 105 mmol/L (98-107); Creatinine Clr Calc Pharmacy 119.3121; Globulin 3.2 g/dL (1.3-4.6); Glomerular Filtration Rate 77.6 mL/min (90-130); Glucose 115 mg/dL (65-115); Osmolality Calculated 290 mOsm/kg (285-295); Potassium 4.6 mmol/L (3.5-5.1); Sodium 140 mmol/L (136-145); Thyroid Stimulating Hormone 1.06 uIU/mL (0.27-4.20); Total Bilirubin 0.2 mg/dL (0.15-1.2)
[2024-06-08 10:42] LABS: Acetaminophen < 5.0 ug/mL (10-30); Alcohol Level < 10 mg/dL (0-10); Salicylate < 0.3 mg/dL (3-10)
[2024-06-08] MEDS: acetaminophen 325 mg Tablet 650 MG PO (10:51)
[2024-06-08] MEDS: nicotine 21 mg Patch 1 PATCH TRANSDERMA (10:51)
[2024-06-08 14:00] VITALS: BP 124/80; PULSE 83; RESP 20; TEMP 37.1; O2SAT 94
--- NOTE | 2024-06-08 15:49 | PC.NURSE ---
Patient cooperative on admission. No contraband uncovered during skin assessment.
[2024-06-08 20:24] VITALS: BP 127/87; PULSE 78; RESP 17; TEMP 36.9; O2SAT 95
[2024-06-08] MEDS: ibuprofen 600 mg Tablet PO (20:53)
[2024-06-08] MEDS: hyDROXYzine 25 mg Capsule 50 MG PO (20:54)
[2024-06-08] MEDS: trazodone 100 mg Tablet PO (20:54)
[2024-06-09 06:28] VITALS: BP 110/71; PULSE 88; RESP 17; TEMP 36.8; O2SAT 92
--- NOTE | 2024-06-09 08:34 | PC.NURSE ---
IN BED RESTING AROUSES TO VOICE. FLAT AFFECT NOTED WITH DEPRESSED MOOD. DENIES PAIN. DENIES SI/HI AND AVH AT THIS TIME. REPORTS SLEEPING WELL. RATES ANXIETY AND DEPRESSION 5/10, REQUESTS ANXIETY MEDICATIONS TO DECREASE ANXIETY. MED NURSE NOTIFIED TO GIVE PT ORDERED MEDS FOR ANXIETY. PT IS NOTED TO BE WITHDRAWN TO ROOM. STATES GOAL FOR THE DAY IS FEEL BETTER. ALL QUESTIONS ANSWERED AND SUPPORT WAS VOICED.
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
[2024-06-09 13:53] VITALS: BP 128/86; PULSE 100; RESP 78; TEMP 36.7; O2SAT 92
[2024-06-09] MEDS: paliperidone ER 6 mg Tablet PO (15:08)
[2024-06-09] MEDS: acetaminophen 325 mg Tablet 650 MG PO (15:12)
[2024-06-09] MEDS: NON-FORMULARY MEDICATION 234 EACH IM (15:18)
[2024-06-09] MEDS: trazodone 100 mg Tablet PO (20:29)
[2024-06-09] MEDS: hyDROXYzine 25 mg Capsule 50 MG PO (20:29)
[2024-06-09] MEDS: ibuprofen 600 mg Tablet PO (20:29)
[2024-06-09 20:31] VITALS: BP 163/98; PULSE 100; RESP 17; TEMP 36.7; O2SAT 93
[2024-06-10 06:00] VITALS: BP 95/60; PULSE 80; RESP 16; TEMP 36.4; O2SAT 98
[2024-06-10] MEDS: hyDROXYzine 25 mg Capsule 50 MG PO (08:34)
[2024-06-10] MEDS: paliperidone ER 6 mg Tablet PO (08:34)
--- NOTE | 2024-06-10 09:42 | PC.NURSE ---
IN BED RESTING AROUSES TO VOICE. STATES SHE IS NOT HAVING ANY ADVERSE REACTIONS FROM INVEGA INJECTION PT RECEIVED YESTERDAY. DENIES SI/HI AND AVH AT THIS TIME. PT HYGIENE IS NOTED TO BE POOR AND PT WAS ENCOURAGED TO SHOWER. RATES ANXIETY AND DEPRESSION 5/10. PT REQUESTS ANXIETY MEDS TO DECREASE SYMPTOMS OF ANXIETY. MED NURSE WAS NOTIFIED. PT IS NOTED TO HAVE A FLAT AFFECT AND SHOWS LITTLE TO NO EMOTION. REPORTS SHE SLEPT WELL LAST NIGHT. PT STATES GOAL FOR THE DAY IS TO FEEL BETTER. SAME GOAL YESTERDAY THIS RN NOTES. ALL QUESTIONS ANSWERED AND SUPPORT WAS VOICED.
[2024-06-10 14:00] VITALS: BP 120/82; PULSE 101; RESP 20; TEMP 37.1; O2SAT 94
--- NOTE | 2024-06-10 16:47 | P.NPUPN_ITS ---
Subjective NPU 2 Subjective: Patient presents today reporting that she is doing okay. She denied any problems with initiating the Invega Sustenna. She queried about how long this keno writer/runner anticipated stay would be and we talked about the likelihood of her discharging in the beginning of the week but that that would be up to Dr. Lozada. She denied any side effects to the medication. Mental Status Exam 2 MSE Comments: This is a morbidly obese white female with significant hirsutism with hospital scrubs on, with limited grooming and adequate eye contact. No abnormal movements except for psychomotor retardation. Cooperative with exam and no acute distress. Speech was decreased rate and normal volume with some mild dysarthria. Mood described as better than yesterday, affect subdued. Thought process linear. Thought content: Patient denied suicidal or homicidal ideation but endorsed feeling suicidal at admission, there were no delusions reported or noted, she denied visual but endorsed occasional auditory hallucinations. Attention and concentration appeared intact and memory was somewhat reliable but none were formally tested. She is alert and oriented x3. Insight and judgment appear limited, impulse control appears limited and intellectual ability appears impaired. Vitals/I&O/Wt Last Vital Signs Temp 98.8 F 06/10/24 14:00 Pulse 101 H 06/10/24 14:00 Resp 20 H 06/10/24 14:00 BP 120/82 06/10/24 14:00 Pulse Ox 94 06/10/24 14:00 O2 Del Method Room Air 06/10/24 06:00 Data NPU 06/08/24 10:00 06/08/24 10:00 A&P Assessment and plan (1) Schizoaffective disorder: (2) Depression: (3) Suicidal ideation: (4) Non compliance w medication regimen: Plan This is a 44-year-old white female with a long history of mental health issues, cognitive impairment and limited social functioning reporting suicidal thoughts, depression and psychosis with recent long-term nonadherence with medication. 1. Restart Invega and given Invega injection 234 mg IM to the deltoid since it is a loading dose. Could consider restarting Topamax. 2. Continue every 15 minute checks for safety. 3. Encourage individual, group and milieu therapies. 4. Reconnected with [facility] outpatient services to see if they will still work with her to assist her in her outpatient recovery and overall treatment. Involuntary Hold Information 2 96 Hour Hold: 96 Hour Involuntary Admission: No Attestations NPU 2 Medical Necessity Statement*: Inpatient hospitalization is medically necessary and the clinically appropriate intervention at this time. We will monitor medications and make changes as indicated. Likely length of stay 3-5 days. Coding Level of Care Code Acute Code for [facility] Diagnoses Schizoaffective disorder F25.9 Depression F32.A Suicidal ideation R45.851 Non compliance w medication regimen Z91.14
[2024-06-10] MEDS: trazodone 100 mg Tablet PO (19:55)
[2024-06-10] MEDS: ibuprofen 600 mg Tablet PO (20:20)
[2024-06-10 21:10] VITALS: BP 102/71; PULSE 104; RESP 18; TEMP 36.7; O2SAT 94
[2024-06-11 06:00] VITALS: BP 115/75; PULSE 82; RESP 16; TEMP 36.6; O2SAT 94
--- NOTE | 2024-06-11 07:37 | P.NPUPN_ITS ---
Subjective NPU 2 Subjective: Patient presented today reporting that she is adjusting to the medication just fine. We discussed the risks, benefits and alternatives of considering restarting her Topamax versus initiating it while inpatient and she understood and agreed to proceed as is documented in this note. She continues to report feeling that she is doing a little better. We discussed that Dr. Lozada would be here tomorrow and that there is a good chance that she could be out of here by Thursday. Mental Status Exam 2 MSE Comments: This is a morbidly obese white female with significant hirsutism with hospital scrubs on, with limited grooming and adequate eye contact. No abnormal movements except for psychomotor retardation. Cooperative with exam and no acute distress. Speech was decreased rate and normal volume with some mild dysarthria. Mood described as better than yesterday, affect subdued. Thought process linear. Thought content: Patient denied suicidal or homicidal ideation but endorsed feeling suicidal at admission, there were no delusions reported or noted, she denied visual but endorsed occasional auditory hallucinations. Attention and concentration appeared intact and memory was somewhat reliable but none were formally tested. She is alert and oriented x3. Insight and judgment appear limited, impulse control appears limited and intellectual ability appears impaired. Vitals/I&O/Wt Last Vital Signs Temp 98 F 06/11/24 06:00 Pulse 82 06/11/24 06:00 Resp 16 06/11/24 06:00 BP 115/75 06/11/24 06:00 Pulse Ox 94 06/11/24 06:00 O2 Del Method Room Air 06/11/24 06:00 Data NPU 06/08/24 10:00 06/08/24 10:00 A&P Assessment and plan (1) Schizoaffective disorder: (2) Depression: (3) Suicidal ideation: (4) Non compliance w medication regimen: Plan This is a 44-year-old white female with a long history of mental health issues, cognitive impairment and limited social functioning reporting suicidal thoughts, depression and psychosis with recent long-term nonadherence with medication. 1. Restart Invega and given Invega injection 234 mg IM to the deltoid since it is a loading dose. Could consider restarting Topamax. 2. Continue every 15 minute checks for safety. 3. Encourage individual, group and milieu therapies. 4. Reconnected with [facility] outpatient services to see if they will still work with her to assist her in her outpatient recovery and overall treatment. Involuntary Hold Information 2 96 Hour Hold: 96 Hour Involuntary Admission: No Attestations NPU 2 Medical Necessity Statement*: Inpatient hospitalization is medically necessary and the clinically appropriate intervention at this time. We will monitor medications and make changes as indicated. Likely length of stay 2-4 days. Coding Level of Care Code Acute Code for [facility] Fwd Diagnoses Schizoaffective disorder F25.9 Depression F32.A Suicidal ideation R45.851 Non compliance w medication regimen Z91.14
[2024-06-11] MEDS: paliperidone ER 6 mg Tablet PO (08:58)
--- NOTE | 2024-06-11 09:25 | PC.NURSE ---
RESTING IN BED AROUSES TO VOICE. PT IS NOTED TO WITHDRAW AND ISOLATE TO ROOM SLEEPING THE MAJORITY OF THE DAY AND NIGHT. DOES GET UP FOR MEALS THEN GOES BACK TO BED. PT IS OBSERVED TO HAVE POOR HYGIENE, STAFF HAVE ENCOURAGED PT TO TAKE A SHOWER SEVERAL TIMES OVER HER STAY BUT PT CONTINUES TO REFUSE. DENIES SI/HI AND AVH AT THIS TIME. DENIES PAIN. RATES ANXIETY 3/10 AND DEPRESSION 5/10. PT STATES GOAL FOR THE DAY IS TO JUST FEEL BETTER. ALL QUESTIONS ANSWERED AND SUPPORT VOICEE..
[2024-06-11 14:00] VITALS: BP 116/80; PULSE 112; RESP 20; TEMP 37.2; O2SAT 95
[2024-06-11] MEDS: hyDROXYzine 25 mg Capsule 50 MG PO (20:42)
[2024-06-11] MEDS: ibuprofen 600 mg Tablet PO (20:42)
[2024-06-11] MEDS: trazodone 100 mg Tablet PO (20:43)
[2024-06-11 21:16] VITALS: BP 133/89; PULSE 107; RESP 18; TEMP 37.1; O2SAT 94
[2024-06-12 06:00] VITALS: RESP 16
--- NOTE | 2024-06-12 08:06 | PC.NURSE ---
Patient sitting on the edge of her bed, calm. Denies avh and si/hi. She states that she slept okay . Denies any pain, gi, or gu issues.
[2024-06-12] MEDS: paliperidone ER 6 mg Tablet PO (08:52)
[2024-06-12] MEDS: nicotine 21 mg Patch 1 PATCH TRANSDERMA (11:39)
[2024-06-12 14:00] VITALS: BP 127/76; PULSE 93; RESP 20; TEMP 36.6; O2SAT 94
--- NOTE | 2024-06-12 18:31 | P.NPUPN_ITS ---
Subjective NPU 2 Subjective: 44-year-old male with a history of schiz oaffective disorder admitted with suicidal ideation and noncompliance with her medication regimen. She had reported that she was doing better with her Invega Sustenna. She had reported that she had struggled with managing her temper while living with her mother over the past 10 months. She had reported that she had lived independently for about 11 months prior to that time and had been unable to Take care of herself particularly having difficulties with cooking and maintaining her home. She had stated that she was feeling better about returning home. Mental Status Exam 2 MSE Comments: This is a morbidly obese white female with significant hirsutism with hospital scrubs on, with limited grooming and adequate eye contact. No abnormal movements except for psychomotor retardation. She was cooperative with exam and no acute distress. Speech was decreased in rate and normal in volume with some mild dysarthria. Mood described as good. Thought process was linear. Thought content: Patient denied suicidal or homicidal ideation. There were no delusions reported or noted and she denied visual or auditory hallucinations. Attention and concentration appeared intact and memory was somewhat reliable but none were formally tested. She is alert and oriented x3. Insight and judgment appear limited, impulse control appears limited and intellectual ability appears impaired. Vitals/I&O/Wt Last Vital Signs Temp 98 F 06/12/24 14:00 Pulse 93 06/12/24 14:00 Resp 20 H 06/12/24 14:00 BP 127/76 06/12/24 14:00 Pulse Ox 94 06/12/24 14:00 O2 Del Method Room Air 06/11/24 21:16 Weight last 48 hrs Weight 141.974 kg Data NPU 06/08/24 10:00 06/08/24 10:00 A&P Assessment and plan (1) Schizoaffective disorder: (2) Depression: (3) Suicidal ideation: (4) Non compliance w medication regimen: Plan This is a 44-year-old white female with a long history of mental health issues, cognitive impairment and limited social functioning reporting suicidal thoughts, depression and psychosis with recent long-term nonadherence with medication. 1. Restart Invega oral 6mg and given Invega injection 234 mg IM to the deltoid since it is a loading dose. Next Invega IM 156mg scheduled for 06/13/24. 2. Continue every 15 minute checks for safety. 3. Encourage individual, group and milieu therapies. 4. Reconnected with [facility] outpatient services to see if they will still work with her to assist her in her outpatient recovery and overall treatment. Involuntary Hold Information 2 96 Hour Hold: 96 Hour Involuntary Admission: No Attestations NPU 2 Medical Necessity Statement*: Inpatient hospitalization is medically necessary and the clinically appropriate intervention at this time. We will monitor medications and make changes as indicated. The patient's likely length of stay is 2-4 days. Coding Level of Care Code Acute Code for [facility] Fwd Diagnoses Schizoaffective disorder F25.9 Depression F32.A Suicidal ideation R45.851 Non compliance w medication regimen Z91.14
[2024-06-12 21:26] VITALS: BP 139/86; PULSE 101; RESP 18; TEMP 36.6; O2SAT 94
[2024-06-13 06:00] VITALS: RESP 15
[2024-06-13] MEDS: paliperidone ER 6 mg Tablet PO (08:28)
--- NOTE | 2024-06-13 09:09 | PC.NURSE ---
PT CURRENTLY DENIES SI/HI/AH/VH. PT CURRENTLY DENIES DEPRESSION AND ANXIETY. PT IS DISHEVELED AND HYGIENE IS POOR. PT WAS COOPERATIVE WITH ASSESSMENT AND MEDICATIONS. PT CURRENT NEEDS ARE MET AT THIS TIME.
[2024-06-13] MEDS: nicotine 21 mg Patch 1 PATCH TRANSDERMA (12:02)
[2024-06-13 13:38] VITALS: RESP 15
[2024-06-13 14:00] VITALS: BP 130/82; PULSE 99; RESP 16; TEMP 36.6; O2SAT 95
[2024-06-13] MEDS: paliperidone palmitate 156 mg Syringe IM (14:07)
--- NOTE | 2024-06-13 14:09 | PC.NURSE ---
INVEGA 156 MG GIVEN TO RIGHT DELTOID, TOLERATED WELL. THIS IS PTS 2ND INJECTION. PT AWAITS DISCHARGE. EDUCATED ON MEDICATIONS, VERBALIZED UNDERSTANDING.
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
== END 2024-06-13 17:00 | disposition home or self-care (01) | DRG 881 ==
LOC: ER 09:55 → NP 10:09
PROVIDERS: Admitting Provider Psychiatry & Neurology Psychiatry; Emergency Provider Emergency Medicine; Visit Provider Psychiatry & Neurology Psychiatry
DX: F32.A Depression, unspecified (principal); R45.851 Suicidal ideations; F25.9 Schizoaffective disorder, unspecified; Z91.148 Patient's other noncompliance with medication regimen for other reason; Z72.0 Tobacco use
CPT/HCPCS: 80053; 80306; 80307; 81001; 81025; 84443; 85025; 93005; 96372; 97150; 97165; 99285

== ENCOUNTER 2024-09-06 00:57 | Emergency (ER) | payer MEDICAID, SELFPAY ==
[2024-09-06 00:57] VITALS: BP 124/87; PULSE 91; RESP 18; TEMP 36.7; O2SAT 93; BMI 58.7
[2024-09-06 01:07] VITALS: PULSE 91; RESP 16; TEMP 36.7; O2SAT 94
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
[2024-09-06 02:06] VITALS: BP 122/87; PULSE 87; RESP 16; O2SAT 94
== END 2024-09-06 01:27 | disposition home or self-care (01) ==
PROVIDERS: Emergency Provider Emergency Medicine
DX: S50.312A Abrasion of left elbow, initial encounter (principal); S80.212A Abrasion, left knee, initial encounter; S80.811A Abrasion, right lower leg, initial encounter; W19.XXXA Unspecified fall, initial encounter; Z72.0 Tobacco use
CPT/HCPCS: 99282